=== PATIENT | female | born 1975 | race Caucasian/White ===

== ENCOUNTER 2024-11-14 10:32 | Outpatient (AMB) | payer BC, SELFPAY ==
--- NOTE | 2024-11-14 10:46 | A.OFFPC_ITS ---
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 Transferring from Dr. Nathaniel Campbell at [facility]. Medical records have been requested as of today. Last Mammogram done at [facility] on 06/01/24. 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 Automotive Quality Manager Required: No Accompanied by: Self / Same As Patient Allergies doxycycline Allergy (Intermediate, Verified 11/14/24 11:03) Rash Medication List - Last Reconciled 11/14/24 by Kevin Morales PA-C No Known Home Meds Tobacco use date assessed: 11/14/24 Dental Screening Dental Screen Date: 11/14/24 Did you have a dental visit in the last 12 months?: No Did you have a dental problem in the last 6 months where you did not have access to dental care?: No Was dental information given to patient?: Patient has dentist HPI IT ANALYST HPI Details Patient is a 49-year-old female here today for a new patient transfer of care visit. Previous PCP was at a [facility].. Concern--> Patient reporting menopausal symptoms and difficulties in managing weight post- menopause. She recounts experiencing nocturnal hot flashes that impact her quality of sleep. Attempts to lose weight have been ineffectual despite her efforts to modify dietary intake and maintain physical activity. 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 PLAN: We discussed weight loss options including dietitian and oral medication. Patient is interested in once a week injection GLP 1 as she had nose about its efficacy. Will try Wegovy 0.25 mg weekly and if not covered by insurance will consider an oral appetite suppressant option. 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 1. Little interest or pleasure in doing things: not at all 2. Feeling down, depressed, or hopeless: not at all 3. Trouble falling or staying asleep, or sleeping too much: several days 4. Feeling tired or having little energy: not at all 5. Poor appetite or overeating: not at all 6. Feeling bad about yourself - or that you are a failure or have let yourself or your family down: not at all 7. Trouble concentrating on things, such as reading the newspaper or watching television: not at all 8. Moving or speaking so slowly that other people could have noticed. Or the opposite - being so fidgety or restless that you have been moving around a lot more than usual: not at all 9. Thoughts that you would be better off or of hurting yourself in some way: not at all Total score: 1 Depression Screening Interpretation: Negative Depression Screening Done: Yes 47636 - PHQ-9 Billing: Yes Source: Developed by Drs. Elton Blood, Lisa Sharma, Dmitri Manuel and colleagues, with an educational solomon from [employer]. Thrive Questionnaire Date Thrive assessed: 11/14/24 I am a: Patient What is your living situation today?: I have a steady place to live Within the past 12 months, did the food you bought not last and you didn't have the money to get more?: Never true Within the past 12 months, did you worry whether your food would run out before you got money to buy more?: Never true Do you have trouble paying for medicines?: No Do you have trouble getting transportation to medical appointments?: No Do you have trouble paying your heating and electricity bill?: No Do you have trouble taking care of your child, family member or friend?: No Do you have trouble with day-to-day activities such as bathing, preparing meals, shopping, managing finances, etc.?: No Are you currently unemployed and looking for a job?: No Are you interested in more education?: No Please select the resources that you would like help with: None Currently or been in a relationship where the following occur: No concerns reported THRIVE Score: 0 AUDIT C Alcohol Use Questionnaire (AUDIT-C) 1. How often do you have a drink containing alcohol?: Never 3. How often do you have six or more drinks on one occasion?: Never Total Score: 0 MÓNICA-7 AMB Questionnaire MÓNICA-7 Date MÓNICA - 7 assessed: 11/14/24 Feeling nervous, anxious, or on edge: 0 = Not at all Not being able to stop or control worryin = Not at all Worrying too much about different things: 0 = Not at all Trouble relaxin = Not at all Being so restless that it is hard to sit still: 0 = Not at all Becoming easily annoyed or irritable: 0 = Not at all Feeling afraid as if something awful might happen: 0 = Not at all Total MÓNICA-7 score (0-4 normal; 5-9 mild; 10-14 moderate; 15-21 severe): 0 Source: Developed by Drs. Elton Blood, Lisa Sharma, Dmitri Manuel and colleagues, with an educational solomon from [employer]. MÓNICA-7 Assessment Billing MÓNICA-7 Assessment Tool: MÓNICA-7 Assessment 52297 Review of Systems Const Denies headache(s) Eyes Denies loss of vision ENT Denies vertigo, Denies dizziness, Denies headache(s) and Denies sore throat Card Denies chest pain, Denies leg edema and Denies lightheadedness Resp Denies cough, Denies hemoptysis and Denies wheezing GI Denies abdominal pain, Denies melena, Denies constipation, Denies diarrhea and Denies vomiting Denies urinary frequency, Denies dysuria and Denies urinary urgency Musc Denies arthralgias, Denies joint swelling, Denies numbness and Denies tingling Neuro Denies Abnormal speech present, Denies behavioral changes, Denies vertigo, Denies dizziness, Denies headache(s), Denies loss of vision, Denies memory loss, Denies numbness and Denies tingling Psych Denies anxiety, Denies behavioral changes, Denies depression, Denies memory loss and Denies panic attacks Aashish/Lymph Denies easy bleeding and Denies easy bruising Aller/Immun Denies wheezing Physical exam (Primary Care) Vital Signs: Last Vital Signs Temp 97.3 F 11/14/24 10:48 Pulse 72 11/14/24 10:48 BP 138/82 11/14/24 10:48 Pulse Ox 98 11/14/24 10:48 Oxygen Delivery Method Room Air 11/14/24 10:48 BMI result Body Mass Index 39.4 BMI Assessment/Plan discussion: High BMI High, discussed plan: lifestyle, weight reduction, dietary and physical activity Tobacco/Smoking Status: Tobacco use Status Tobacco use date assessed 11/14/24 11/14/24 10:54 Patient Tobacco Use Status Never used Tobacco 11/14/24 11:09 e-Cigarette/Vaping Use Never Used 11/14/24 11:09 PHQ-9: PHQ-9 Score PHQ-9: Total score 1 11/14/24 11:04 Depression Screening Interpretation: Negative Thrive Assessment: Date of Thrive Assessment Date Thrive assessed 11/14/24 11/14/24 10:55 Currently or been in a relationship where the following occur: No concerns rep orted Const General: healthy appearing, no acute distress, alert and awake Nutritional Appearance: well nourished Orientation/consciousness: oriented to person, oriented to place and oriented to time HENMT Ears: TM's normal bilaterally General nose exam: Normal nasal mucous membranes and turbinates present Eyes Conjunctivae: conjunctivae normal Sclerae: sclerae normal Pupils: Equal, round and reactive pupils present Neck Neck: Yes no lymphadenopathy and Yes no JVD Thyroid: Thyroid normal Carotids: no bruits Resp Effort & Inspection: normal respiratory effort and not tachypneic Auscultation: no crackles, no rales, no rhonchi and no wheezes Cardio Rate: regular rate Rhythm: regular rhythm Heart sounds: no murmurs and normal S1 and S2 GI Palpation (GI): Soft to palpation, nontender, no hepatomegaly and no spl enomegaly Auscultation: normal bowel sounds Skin General skin exam: no rashes or lesions noted and dry skin Neuro General: oriented to person, oriented to place and oriented to time Cranial nerves: Yes Equal, round and reactive pupils present Speech: No Abnormal speech present Gait exam (Neuro): Normal gait present Motor exam (neuro): no tremor noted Extrem Right upper extremity: full ROM Left upper extremity: full ROM Right lower extremity: full ROM; no edema Left lower extremity: full ROM; no edema Psych Mental Status: mental status grossly normal Speech and movement: Normal speech and movement present Affect: normal affect Attitude: cooperative Thought process: Normal thought process present Coding Level of Care Code New Pt Level 4 (52664) Diagnoses Class 2 obesity E66.812 Screening for diabetes mellitus (DM) Z13.1 Menopausal syndrome N95.1 Additional Codes MÓNICA-7 Assessment Billing - MÓNICA-7 Assessment Tool: MÓNICA-7 Assessment 28638 ([id number]) PHQ-9 - 50887 - PHQ-9 Billing: Yes ([id number]) Assessment & Plan Assessment & Plan (1) Class 2 obesity: Code(s): E66.812 - Obesity, class 2 Category: Medical Plan: Patient concerned about her weight, she does understand her BMI is over 35. We will address the patient?s weight management difficulties post-menopause by considering dietary changes and exploring pharmacological aids such as phentermine and possibly Wegovy (semaglutide), pending insurance verification. A dietitian referral will be considered for more structured dietary guidance. (2) Screening for diabetes mellitus (DM): Code(s): Z13.1 - Encounter for screening for diabetes mellitus Category: Medical Plan: as per hPI (3) Menopausal syndrome: Code(s): N95.1 - Menopausal and female climacteric states Category: Medical Plan: For her menopausal symptoms, a referral to a SOCIAL WELFARE RESEARCH WORKER for potential hormone replacement therapy was made. We discussed using black cohosh for managing hot flashes and considered a trial of sleep aids if nocturnal disturbances continue. Orders: Orders Complete Blood Count no Diff Today Z13.1 - Encounter for screening for diabetes mellitus Comprehensive [place]. Panel Fast Today Z13.1 - Encounter for screening for diabetes mellitus TSH reflex Free T4 Today E66.812 - Obesity, class 2 Follicle Stimulating Hormone Today N95.1 - Menopausal and female climacteric states Referrals LEAD ENTERPRISE ARCHITECT Referral N95.1 - Menopausal and female climacteric states Medications: New semaglutide (weight loss) (Wegovy) administer weeks 1 through 4 of therapy 0.25 mg (0.5 mL) subcut QWEEK 4 weeks 2 mL 0RF E66.812 - Obesity, class 2
[2024-11-14 10:48] VITALS: BP 138/82; PULSE 72; TEMP 36.3; O2SAT 98; BMI 39.4
== END 2024-11-14 11:31 | disposition home or self-care (01) ==
LOC: HO.HMCH 10:33
PROVIDERS: Visit Provider Physician Assistant
DX: N95.1 Menopausal and female climacteric states (principal); E66.812 Obesity, class 2; Z13.1 Encounter for screening for diabetes mellitus; Z68.39 Body mass index [BMI] 39.0-39.9, adult

== ENCOUNTER → 2024-11-14 10:32 | Outpatient (BNVA) | payer BC, SELFPAY | PROVIDERS: Visit Provider Physician Assistant | DX: E66.812 Obesity, class 2 (principal); N95.1 Menopausal and female climacteric states; Z68.39 Body mass index [BMI] 39.0-39.9, adult | CPT/HCPCS: 96127 ==

== ENCOUNTER 2025-01-19 11:14 | Outpatient (REF) | payer BC, SELFPAY ==
[2025-01-19 11:56] LABS: Hematocrit 40.2 % (37.0-47.0); Hemoglobin 13.1 g/dl (12.0-16.0); Mean Corpuscular HGB Conc 32.6 g/dl (31.0-35.0); Mean Corpuscular Hemoglobin 28.2 pg (27.0-33.0); Mean Corpuscular Volume 86.6 fL (80.0-98.0); NRBC Abs Auto 0.000 X10*3/uL (0.0-0.012); NRBC Pct Auto 0.0 /100WBC (0.0-0.2); Platelet Count 318 X10*3/uL (160-400); Red Blood Count 4.64 X10*6/uL (4.20-5.50); White Blood Count 8.3 X10*3/uL (4.8-10.8)
[2025-01-19 12:32] LABS: Alanine Aminotransferase 26 U/L (0-31); Albumin Level 4.3 g/dL (3.5-5.0); Alkaline Phosphatase 78 U/L (39-117); Anion Gap 13 (12-20); Aspartate Amino Transferase 26 U/L (5-31); Blood Urea Nitrogen 6 mg/dL (9-16); Calcium 9.1 mg/dL (8.4-10.2); Carbon Dioxide 25 mmol/L (22-29); Chloride 108 mmol/L (96-108); Estimated Glomerular Filt Rate > 60; Potassium 3.6 mmol/L (3.3-5.1); Sodium 142 mmol/L (135-145); Total Protein 7.0 g/dL (6.5-8.0)
[2025-01-20 06:27] LABS: Follicle Stimulating Hormone 10.9 mIU/mL
== END 2025-01-19 11:15 | disposition home or self-care (01) ==
LOC: HO.LAB 11:14
PROVIDERS: PCP Physician Assistant; Visit Provider Physician Assistant
DX: Z13.1 Encounter for screening for diabetes mellitus (principal); E66.812 Obesity, class 2; N95.1 Menopausal and female climacteric states
CPT/HCPCS: 36415; 80053; 83001; 84443; 85027

== ENCOUNTER 2025-01-24 08:55 | Outpatient (AMB) | payer BC, SELFPAY ==
--- NOTE | 2025-01-24 08:57 | A.OFFPC_ITS ---
Vital Signs 01/24/25 08:59 Height 5 ft 4 in Weight 228 lb 6 oz BMI 39.2 BP 120/70 Blood Pressure Location Lt brachial Position Sitting Pulse 70 Pulse Source Pulse Oximeter Temp 97.1 F Temp Source Temporal Artery Scan Pulse Oximetry (%) 96 Oxygen Delivery Method Room Air Intake Visit Reasons: pe Intake Note: Patient is here today for a physical. Venetian Blind Installer Required: No Senior Hr Manager: Not Required per policy Accompanied by: Self / Same As Patient Allergies doxycycline Allergy (Intermediate, Verified 01/24/25 09:12) Rash Medication List - Last Reconciled 01/24/25 by Kevin Morales PA-C semaglutide (weight loss) (Wegovy) 0.25 mg (0.5 mL) subcut QWEEK 4 weeks Tobacco use date assessed: 01/24/25 Dental Screening Dental Screen Date: 11/14/24 HPI pe HPI Details atient is a 50-year-old female here today for a annual physical. Patient has a past medical history significant for class 2 obesity Concern--> The patient is currently dealing with warts on her toes, which she has attempted to treat with [id number] remedies. She reports partial improvement but is considering further treatment options, including a medicated cream. Perimenopausal: Recent follicle stimulating hormone not in menopausal range. Patient reporting menopausal symptoms and difficulties in managing weight post-m enopause. She recounts experiencing nocturnal hot flashes that impact her quality of sleep. Attempts to lose weight have been ineffectual despite her efforts to modify dietary intake and maintain physical activity. 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 She has an upcoming appointment with operations director specialty.. Class 2 obesity: Patient was able to receive Wegovy from the pharmacy though has not started it yet as she has been on vacations. Today's BMI at 39.2. Will follow up with patient in 3 months to evaluate effectiveness of the GLP 1 medication. Mammogram: Has been done at [facility] in May of 2024 Vaccines: Up-to-date with COVID vaccines, flu vaccines and tetanus vaccine. 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 Cognitive needs: No Hearing needs: No Vision needs: No Questionnaire Thrive Questionnaire Date Thrive assessed: 11/10/24 I am a: Patient What is your living situation today?: I have a steady place to live Within the past 12 months, did the food you bought not last and you didn't have the money to get more?: Never true Within the past 12 months, did you worry whether your food would run out before you got money to buy more?: Never true Do you have trouble paying for medicines?: No Do you have trouble getting transportation to medical appointments?: No Do you have trouble paying your heating and electricity bill?: No Do you have trouble taking care of your child, family member or friend?: No Do you have trouble with day-to-day activities such as bathing, preparing meals, shopping, managing finances, etc.?: No Are you currently unemployed and looking for a job?: No Are you interested in more education?: No Please select the resources that you would like help with: None Currently or been in a relationship where the following occur: No concerns reported THRIVE Score: 0 MÓNICA-7 AMB Questionnaire MÓNICA-7 Date MÓNICA - 7 assessed: 11/14/24 Source: Developed by Drs. Elton Blood, Lisa Sharma, Dmitri Manuel and colleagues, with an educational solomon from [employer]. Review of Systems Const Denies body aches, Denies chills, Denies excessive sweating, Denies fatigue, Denies fever(s) and Denies headache(s) Eyes Denies blurry vision ENT Denies dysphagia, Denies vertigo, Denies dizziness, Denies headache(s), Denies hearing loss and Denies tinnitus Card Denies chest pain, Denies chest pain with activity, Denies syncope, Denies irregular heart rhythm and Denies dyspnea Resp Denies chest congestion, Denies cough, Denies hemoptysis, Denies dyspnea and Denies wheezing GI Denies abdominal pain, Denies melena, Denies hematochezia, Denies coffee ground emesis, Denies dysphagia, Denies diarrhea, Denies nausea and Denies vomiting Denies urinary frequency, Denies dysuria, Denies urinary hesitancy and Denies urinary urgency Musc Denies arthralgias, Denies limited range of motion, Denies muscle cramps and Denies muscle weakness Skin/Breast Denies rash and Denies skin ulcer Neuro Denies Abnormal speech present, Denies confusion, Denies vertigo, Denies dizziness, Denies syncope, Denies headache(s), Denies memory loss and Denies seizure-like activity Psych Denies anxiety, Denies confusion, Denies depression, Denies memory loss, Denies panic attacks and Denies paranoia Endo Denies excessive sweating, Denies fatigue, Denies flushing, Denies polydipsia and Denies polyuria Aller/Immun Denies wheezing Physical exam (Primary Care) Vital Signs: Last Vital Signs Temp 97.1 F 01/24/25 08:59 Pulse 70 01/24/25 08:59 BP 120/70 01/24/25 08:59 Pulse Ox 96 01/24/25 08:59 Oxygen Delivery Method Room Air 01/24/25 08:59 BMI result Body Mass Index 39.2 BMI Assessment/Plan discussion: High BMI High, discussed plan: lifestyle, weight reduction, dietary and physical activity Tobacco/Smoking Status: Tobacco use Status Tobacco use date assessed 01/24/25 01/24/25 09:03 Patient Tobacco Use Status Never used Tobacco 01/24/25 09:03 e-Cigarette/Vaping Use Never Used 01/24/25 09:03 Thrive Assessment: Date of Thrive Assessment Date Thrive assessed 11/10/24 01/24/25 09:03 Currently or been in a relationship where the following occur: No concerns reported Const General: cooperative, comfortable, no acute distress, alert and awake; No confusion Orientation/consciousness: oriented to person, oriented to place, patient oriented x3 and No confusion HENMT Head: Yes normocephalic Ears: external ears normal and TM's normal bilaterally Face and sinus: No sinus tenderness Mouth: Normal oral and palatal mucosa present and tongue normal Teeth and gingiva: dentition normal and gingiva normal Throat: Yes posterior oropharynx normal, Yes tonsils normal and Yes uvula midline Eyes Conjunctivae: conjunctivae normal Sclerae: sclerae normal Pupils: Equal, round and reactive pupils present EOM: EOMs intact bilaterally Direct Ophthalmoscopy: No no photophobia Neck Neck: Yes no lymphadenopathy, No tender and Yes no JVD Thyroid: Thyroid normal Carotids: no bruits Chest Chest palpation & inspection: no tenderness Resp Effort & Inspection: normal respiratory effort, no audible wheezes, not labored and no stridor Auscultation: no crackles, no rales, no rhonchi and no wheezes Cardio Jugular venous distension: no JVD Rate: regular rate, not bradycardic and not tachycardic Rhythm: regular rhythm Bruits: no carotid bruits Peripheral pulses: Peripheral pulses 2+ throughout GI Inspection: Yes normal to inspection, No abdominal wall ecchymosis and No visib le herniation Palpation (GI): Soft to palpation, nontender, no guarding, not rigid and No hepatosplenomegaly present Auscultation: normoactive bowel sounds General: Yes no CVA tenderness Back/Spine/Pelvis Back: no CVA tenderness and No back tenderness Cervical Spine: cervical ROM normal Thoracic/Lumbar Spine: thoracic and lumbar spine normal to inspection, straight leg raise negative bilaterally, No thoraco-lumbar ROM limited and No lumbar spinal tenderness Skin Lesions: no lesions Rashes: no rashes Wounds: no wounds Neuro General: oriented to person, oriented to place, patient oriented x3, CN's II-XI intact bilaterally and No confusion Cranial nerves: Yes Equal, round and reactive pupils present and Yes Normal accommodation reflex present Cognition (Neuro): normal cognition Speech: No Abnormal speech present Gait exam (Neuro): Normal gait present Motor exam (neuro): 5/5 motor strength present throughout Extrem Right upper extremity: full ROM; no cyanosis Left upper extremity: full ROM; no cyanosis Right lower extremity: no edema Left lower extremity: no edema Psych Appearance: grossly normal Mental Status: mental status grossly normal Affect: normal affect Attitude: cooperative Thought process: Normal thought process present Coding Level of Care Code Est Pt Prev Care 40-64y(96690) Diagnoses Annual physical exam Z00.00 Class 2 obesity E66.812 Menopausal syndrome N95.1 Borderline high cholesterol E78.9 Plantar wart B07.0 Assessment & Plan Assessment & Plan (1) Annual physical exam: Code(s): Z00.00 - Encounter for general adult medical examination without abnormal findings Category: Medical Plan: As per HPI (2) Class 2 obesity: Code(s): E66.812 - Obesity, class 2 Category: Medical Plan: Patient does understand her BMI is over 35 and will work on being more physically active and adapting to better eating habits to reduce her weight. She will be starting GLP 1 medication in near future to help weight loss as well. (3) Menopausal syndrome: Code(s): N95.1 - Menopausal and female climacteric states Category: Medical Plan: For her menopausal symptoms, a referral to a DIRECTOR OF PROCUREMENT for potential hormone replacement therapy was made. We discussed using black cohosh for managing hot flashes and considered a trial of sleep aids if nocturnal disturbances continue. (4) Borderline high cholesterol: Code(s): E78.9 - Disorder of lipoprotein metabolism, unspecified Category: Medical Plan: Patient has a history of borderline high total cholesterol. Will recheck lipid panel. Goal total cholesterol to be below 200 (5) Plantar wart: Code(s): B07.0 - Plantar wart Category: Medical Plan: The patient reports warts on her toes, which have been partially responsive to [id number] treatments. A medicated cream will be prescribed, and referral to a network contract manager is available if needed. Orders: Orders Lipid Panel Today E78.9 - Disorder of lipoprotein metabolism, unspecified Comprehensive [place]. Panel Fast Today E78.9 - Disorder of lipoprotein metabolism, unspecified Medications: New salicylic acid 27.5% apply to entire wart site; allow to dry; repeat application 1 appl topical BID 10 mL 0RF 4 weeks B07.0 - Plantar wart
[2025-01-24 08:59] VITALS: BP 120/70; PULSE 70; TEMP 36.2; O2SAT 96; BMI 39.2
== END 2025-01-24 09:25 | disposition home or self-care (01) ==
LOC: HO.HMCH 08:56
PROVIDERS: PCP Physician Assistant; Visit Provider Physician Assistant
DX: Z00.00 Encounter for general adult medical examination without abnormal findings (principal); E66.812 Obesity, class 2; Z68.39 Body mass index [BMI] 39.0-39.9, adult; N95.1 Menopausal and female climacteric states; E78.9 Disorder of lipoprotein metabolism, unspecified; B07.0 Plantar wart

== ENCOUNTER 2025-05-01 15:38 | Outpatient (AMB) | payer BC, SELFPAY ==
--- NOTE | 2025-05-01 15:39 | MHC.PC.OV ---
Vital Signs 05/01/25 15:44 Height 5 ft 4 in Weight 217 lb 6 oz BMI 37.3 BP 120/74 Blood Pressure Location Lt brachial Position Sitting Pulse 55 Pulse Source Pulse Oximeter Temp 97.3 F Temp Source Temporal Artery Scan Pulse Oximetry (%) 100 Oxygen Delivery Method Room Air Intake Visit Reasons: f/u weight check Intake Note: Patient is here to follow up on Weight check. 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 Patient has a past medical history significant for class 2 obesity, borderline high cholesterol Class 2 obesity: Patient continues on once weekly injection of Wegovy 0.25 mg. She has lost 10 lb since December of 2024, she denies any major side effects from medication. She is willing to increase her dose to 0.5 mg weekly for additional weight loss. .. Systolic murmur: Have noticed systolic murmur on physical exam today. She does report this has been heard in the past. There is no overt signs of Congestive heart failure. We did discuss perhaps getting an echocardiogram as baseline heart valvular function. 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 Cognitive needs: No Hearing needs: No Vision needs: No Questionnaire Thrive Questionnaire Date Thrive assessed: 11/10/24 I am a: Patient What is your living situation today?: I have a steady place to live Within the past 12 months, did the food you bought not last and you didn't have the money to get more?: Never true Within the past 12 months, did you worry whether your food would run out before you got money to buy more?: Never true Do you have trouble paying for medicines?: No Do you have trouble getting transportation to medical appointments?: No Do you have trouble paying your heating and electricity bill?: No Do you have trouble taking care of your child, family member or friend?: No Do you have trouble with day-to-day activities such as bathing, preparing meals, shopping, managing finances, etc.?: No Are you currently unemployed and looking for a job?: No Are you interested in more education?: No Please select the resources that you would like help with: None Currently or been in a relationship where the following occur: No concerns reported THRIVE Score: 0 MÓNICA-7 AMB Questionnaire MÓNICA-7 Date MÓNICA - 7 assessed: 11/14/24 Source: Developed by Drs. Elton Blood, Lisa Sharma, Dmitri Manuel and colleagues, with an educational solomon from [employer]. Review of Systems Const Denies headache(s) Eyes Denies loss of vision ENT Denies vertigo, Denies dizziness, Denies headache(s) and Denies sore throat Card Denies chest pain, Denies leg edema and Denies lightheadedness Resp Denies cough, Denies hemoptysis and Denies wheezing GI Denies abdominal pain, Denies melena, Denies constipation, Denies diarrhea and Denies vomiting Denies urinary frequency, Denies dysuria and Denies urinary urgency Musc Denies arthralgias, Denies joint swelling, Denies numbness and Denies tingling Neuro Denies Abnormal speech present, Denies behavioral changes, Denies vertigo, Denies dizziness, Denies headache(s), Denies loss of vision, Denies memory loss, Denies numbness and Denies tingling Psych Denies anxiety, Denies behavioral changes, Denies depression, Denies memory loss and Denies panic attacks Aashish/Lymph Denies easy bleeding and Denies easy bruising Aller/Immun Denies wheezing Physical exam (Primary Care) Vital Signs: Last Vital Signs Temp 97.3 F 05/01/25 15:44 Pulse 55 05/01/25 15:44 BP 120/74 05/01/25 15:44 Pulse Ox 100 05/01/25 15:44 Oxygen Delivery Method Room Air 05/01/25 15:44 BMI result Body Mass Index 37.3 Tobacco/Smoking Status: Tobacco use Status Tobacco use date assessed 05/01/25 05/01/25 15:43 Patient Tobacco Use Status Never used Tobacco 05/01/25 15:42 e-Cigarette/Vaping Use Never Used 05/01/25 15:42 Thrive Assessment: Date of Thrive Assessment Date Thrive assessed 11/10/24 05/01/25 15:42 Currently or been in a relationship where the following occur: No concerns reported Const Other: OBESE General: no acute distress, alert and awake Nutritional Appearance: well nourished Orientation/consciousness: oriented to person, oriented to place and oriented to time HENMT Ears: TM's normal bilaterally General nose exam: Normal nasal mucous membranes and turbinates present Eyes Conjunctivae: conjunctivae normal Sclerae: sclerae normal Pupils: Equal, round and reactive pupils present Neck Neck: Yes no lymphadenopathy and Yes no JVD Thyroid: Thyroid normal Carotids: no bruits Resp Effort & Inspection: normal respiratory effort and not tachypneic Auscultation: no crackles, no rales, no rhonchi and no wheezes Cardio Rate: regular rate Rhythm: regular rhythm Heart sounds: no murmurs and normal S1 and S2 GI Palpation (GI): Soft to palpation, nontender, no hepatomegaly and no splenomegaly Auscultation: normal bowel sounds Skin General skin exam: no rashes or lesions noted and dry skin Neuro General: oriented to person, oriented to place and oriented to time Cranial nerves: Yes Equal, round and reactive pupils present Speech: No Abnormal speech present Gait exam (Neuro): Normal gait present Motor exam (neuro): no tremor noted Extrem Right upper extremity: full ROM Left upper extremity: full ROM Right lower extremity: full ROM; no edema Left lower extremity: full ROM; no edema Psych Mental Status: mental status grossly normal Speech and movement: Normal speech and movement present Affect: normal affect Attitude: cooperative Thought process: Normal thought process present Coding Level of Care Code Est Pt Level 4 (32758) Diagnoses Class 2 obesity E66.812 Borderline high cholesterol E78.9 Assessment & Plan Assessment & Plan (1) Class 2 obesity: Code(s): E66.812 - Obesity, class 2 Category: Medical Plan: Patient does understand her BMI is over 35, has lost weight since starting GLP 1 therapy though has been on Wegovy 0.25 mg for quite some time now. She is interested in increasing the Wegovy to 0.5 mg for additional weight loss. (2) Borderline high cholesterol: Code(s): E78.9 - Disorder of lipoprotein metabolism, unspecified Category: Medical Plan: Patient has a history of borderline high cholesterol. Continues on dietary and lifestyle modifications. Will recheck fasting lipid panel before her annual physical in 2025. Goal LDL is to be below 130 Medications: New semaglutide (weight loss) (Wegovy) 0.5 mg (0.5 mL) subcut QWEEK 2 mL 1RF 4 weeks E66.812 - Obesity, class 2
[2025-05-01 15:44] VITALS: BP 120/74; PULSE 55; TEMP 36.3; O2SAT 100; BMI 37.3
--- OUTSIDE RECORDS SUMMARY | 2025-05-01 18:18 | XMS_ITS | Data Portability ---
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 Plan of Treatment Reminders Order Date Submit Date Provider Last Modified By Organization Details Last Modified Time Details Appointments None recorded. Lab lipid panel, serum 2022 023 [facility], [address], [address], [place], [address], 3 16:28:57 TSH, serum or plasma 2022 023 [facility], [address], [address], [place], [address], 3 16:28:27 CMP, serum or plasma 2021 022 [facility], [address], [address], [place], [address], 3 10:59:55 lipid panel, serum 2020 021 [facility], [address], [address], [place], [address], 2 10:33:28 TSH, serum or plasma 2020 021 [facility], [address], [address], [place], [address], 1 11:06:06 lipid panel, serum 2020 021 [facility], [address], [address], [place], [address], 11:00:17 CMP, serum or plasma 2020 021 [facility], [address], [address], [place], [address], 11:00:15 Referral bariatric surgery referral - For all patients interested in the surgical weight management pathway, they will enter through our web-based video training and questionnai re [email or web address] to get started Must have a BMI of 35 or greater to qualify for the program. (35-39 we must ask and document a co-morbidit y) Patient must provide height and weight 2022 023 [email or web address] [facility], [address] [place] [address] [address], [place], [address], 3 09:21:50 gynecologis t referral 2022 023 [email or web address] Not available 3 09:30:26 nutritionis t/dietitian referral 2020 021 [email or web address] Not available 1 11:33:14 nutritionis t/dietitian referral 2020 021 [email or web address] Not available 08:05:35 Procedures None recorded. Surgeries None recorded. Imaging MAMMO, screening, bilateral 2020 021 [email or web address] Not available 08:05:27 Medication Orders None recorded. Patient TargetsNo targets recorded. Patient Instructions Encounter Date Encounter Id Patient Instructions Last Modified By Organization Details Last Modified Time 10/29/2020 [id number] Starting a Weight-Loss Plan: Care Instructions Not available 10/29/2020 15:02:53 Nutrition Referral and Weight Management Follow-up Information Not available 10/29/2020 15:02:53 dash diet: care instructions Not available 10/29/2020 15:07:37 high blood pressure: care instructions Not available 10/29/2020 15:07:36 04/30/2021 [id number] Starting a Weight-Loss Plan: Care Instructions Not available 04/30/2021 16:58:31 Nutrition Referral and Weight Management Follow-up Information Not available 04/30/2021 16:58:31 09/18/2022 [id number] dash diet: care instructions Not available 09/18/2022 16:34:06 Reason for Referral 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 Refer ral for Body mass index 40+ - severely obese Referring Physician: Sara Garcia, Internal Medicine, Encounter Date: 10/29/2020 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 Refer ral for Body mass index 30+ - obesity Referring Physician: Sara Garcia Internal Medicine, Encounter Date: 04/30/2021 Bariatric Surgery Referral f or Body mass index 40+ - severely obese For all patients interested in the surgical weight management pathway, they will enter through our web-based video training and questionnaire [email or web address] to get startedMust have a BMI of 35 or greater to qualify for the program. (35-39 we must ask and document a co-morbidity) Patient must provide height and weight Referring Physician: Sara Garcia Internal Medicine, Encounter Date: 09/18/2022 Multi Site Leasing Consultant Referral for Sc reening for malignant neoplasm of cervix Referring Physician: Sara Garcia Internal Medicine, Encounter Date: 09/18/2022 Results Created Date Observation Date Name Description Value Unit Range Abnormal Flag Note LastModifiedBy Organization Detail LastModifiedTime 11/27/19 21 11/26/2020 CMP, serum or plasm a glucose 81 mg/dL (70-99 ) Not Available [facility] (Centralized Electronic Ordering - All Locations) Patient Can Go To The Location Of Their Choice, 11/26/2020 11:00:11/27/1911/26/2020 CMP, serum or plasm a BUN 10 mg/dL (6-20) Not Available [facility] (Centralized Electronic Ordering - All Locations) Patient Can Go To The Location Of Their Choice, 11/26/2020 11:00:11/27/1911/26/2020 CMP, serum or plasm a creatinine 0.8 mg/dL (0.5-1 .0) Not Available [facility] (Centralized Electronic Ordering - All Locations) Patient Can Go To The Location Of Their Choice, 11/26/2020 11:00:11/27/1911/26/2020 CMP, serum or plasm a sodium 140 mmol/ L (133-1 45) Not Available [facility] (Centralized Electronic Ordering - All Locations) Patient Can Go To The Location Of Their Choice, 11/26/2020 11:00:11/27/1911/26/2020 CMP, serum or plasm a potassium 4.3 mmol/ L (3.6-5 .2) Not Available [facility] (Centralized Electronic Ordering - All Locations) Patient Can Go To The Location Of Their Choice, 11/26/2020 11:00:11/27/1911/26/2020 CMP, serum or plasm a chloride 102 mmol/ L (98-10 7) Not Available [facility] (Centralized Electronic Ordering - All Locations) Patient Can Go To The Location Of Their Choice, 11/26/2020 11:00:11/27/1911/26/2020 CMP, serum or plasm a bicarbonate 25 mmol/ L (22-29 ) Not Available [facility] (Centralized Electronic Ordering - All Locations) Patient Can Go To The Location Of Their Choice, 11/26/2020 11:00:11/27/1911/26/2020 CMP, serum or plasm a anion gap 13 (4-17) Not Available [facility] (Centralized Electronic Ordering - All Locations) Patient Can Go To The Location Of Their Choice, 11/26/2020 11:00:11/27/1911/26/2020 CMP, serum or plasm a albumin 4.1 gm/dL (3.4-4 .8) Not Available [facility] (Centralized Electronic Ordering - All Locations) Patient Can Go To The Location Of Their Choice, 11/26/2020 11:00:15 11/27/1911/26/2020 CMP, serum or plasm a calcium 9.2 mg/dL (8.6-1 0.5) Not Available [facility] (Centralized Electronic Ordering - All Locations) Patient Can Go To The Location Of Their Choice, 11/26/2020 11:00:15 11/27/1911/26/2020 CMP, serum or plasm a bilirubin,to hoang 0.3 mg/dL (0-1.2 ) Not Available [facility] (Centralized Electronic Ordering - All Locations) Patient Can Go To The Location Of Their Choice, 11/26/2020 11:00:15 11/27/1911/26/2020 CMP, serum or plasm a total protein 6.7 gm/dL (6.2-8 .2) Not Available [facility] (Centralized Electronic Ordering - All Locations) Patient Can Go To The Location Of Their Choice, 11/26/2020 11:00:11/27/1911/26/2020 CMP, serum or plasm a Ag ratio 1.6 Not Available [facility] (Centralized Electronic Ordering - All Locations) Patient Can Go To The Location Of Their Choice, 11/26/2020 11:00:11/27/1911/26/2020 CMP, serum or plasm a AST 15 U/L (0-32) Not Available [facility] (Centralized Electronic Ordering - All Locations) Patient Can Go To The Location Of Their Choice, 11/26/2020 11:00:15 11/27/1911/26/2020 CMP, serum or plasm a alk phos 78 U/L (35-10 4) Not Available [facility] (Centralized Electronic Ordering - All Locations) Patient Can Go To The Location Of Their Choice, 11/26/2020 11:00:15 11/27/1911/26/2020 CMP, serum or plasm a ALT 15 U/L (0-33) Not Available [facility] (Centralized Electronic Ordering - All Locations) Patient Can Go To The Location Of Their Choice, 11/26/2020 11:00:15 11/27/1911/26/2020 CMP, serum or plasm a est GFR non 92 mL/mi n/1.7 3_M2 Creat inine based estim ated glome rular filtr ation rate (eGFR ) is calcu lated using the Chron ic Kidne y Disea se Epide miolo gy Colla borat ion (CKD- EPI). The CKD-E PI creat inine equat ion has not been valid ated in child yoko (<18 years ), pregn ant women or in some racia l or ethni c subgr oups other than Cauca sians and Afric an Ameri cans. Not Available [facility] (Centralized Electronic Ordering - All Locations) Patient Can Go To The Location Of Their Choice, 11/26/2020 11:00:15 11/27/1911/26/2020 CMP, serum or plasm a est GFR 107 mL/mi n/1.7 3_M2 Creat inine based estim ated glome rular filtr ation rate (eGFR ) is calcu lated using the Chron ic Kidne y Disea se Epide miolo gy Colla borat ion (CKD- EPI). The CKD-E PI creat inine equat ion has not been valid ated in child yoko (<18 years ), pregn ant women or in some racia l or ethni c subgr oups other than Cauca sians and Afric an Ameri cans. Not Available [facility] (Centralized Electronic Ordering - All Locations) Patient Can Go To The Location Of Their Choice, 11/26/2020 11:00:15 11/27/1911/26/2020 lipid panel , serum cholesterol, total 172 mg/dL (<200) Not Available [facility] (Centralized Electronic Ordering - All Locations) Patient Can Go To The Location Of Their Choice, 11/26/2020 11:00:16 11/27/1911/26/2020 lipid panel , serum triglyceride 215 mg/dL (<150) high Not Available [facility] (Centralized Electronic Ordering - All Locations) Patient Can Go To The Location Of Their Choice, 11/26/2020 11:00:16 11/27/1911/26/2020 lipid panel , serum HDL chol 37 mg/dL (>39) low Not Available [facility] (Centralized Electronic Ordering - All Locations) Patient Can Go To The Location Of Their Choice, 11/26/2020 11:00:16 11/27/1911/26/2020 lipid panel , serum LDL cholesterol, calculated 92 mg/dL (0-130 ) Not Available [facility] (Centralized Electronic Ordering - All Locations) Patient Can Go To The Location Of Their Choice, 11/26/2020 11:00:16 11/27/1911/26/2020 lipid panel , serum non HDL cholesterol (calc) 135 mg/dL (<160) Not Available [facility] (Centralized Electronic Ordering - All Locations) Patient Can Go To The Location Of Their Choice, 11/26/2020 11:00:16 11/27/1911/26/2020 TSH, serum or plasm a TSH 1.72 uIU/m L (0.4-4 .00) Not Available [facility] (Centralized Electronic Ordering - All Locations) Patient Can Go To The Location Of Their Choice, 11/26/2020 11:06:06 08/12/1908/12/2021 LIPID PANEL cholesterol, total 180 mg/dL (<200) Not Available [facility] (Centralized Electronic Ordering - All Locations) Patient Can Go To The Location Of Their Choice, 08/12/2021 10:33:28 08/12/1908/12/2021 LIPID PANEL triglyceride 152 mg/dL (<150) high Not Available [facility] (Centralized Electronic Ordering - All Locations) Patient Can Go To The Location Of Their Choice, 08/12/2021 10:33:28 08/12/19 22 08/12/2021 LIPID PANEL HDL chol 40 mg/dL (>39) Not Available [facility] (Centralized Electronic Ordering - All Locations) Patient Can Go To The Location Of Their Choice, 08/12/2021 10:33:28 08/12/1908/12/2021 LIPID PANEL LDL cholesterol, calculated 110 mg/dL (0-130 ) Not Available [facility] (Centralized Electronic Ordering - All Locations) Patient Can Go To The Location Of Their Choice, 08/12/2021 10:33:28 08/12/1908/12/2021 LIPID PANEL non HDL cholesterol (calc) 140 mg/dL (<160) Not Available [facility] (Centralized Electronic Ordering - All Locations) Patient Can Go To The Location Of Their Choice, 08/12/2021 10:33:28 09/05/1909/04/2022 COMPR EHENS COLLIN METAB OLIC PANL glucose 81 mg/dL (70-99 ) Not Available [facility] (Centralized Electronic Ordering - All Locations) Patient Can Go To The Location Of Their Choice, 09/04/2022 10:59:55 09/05/1909/04/2022 COMPR EHENS COLLIN METAB OLIC PANL BUN 8 mg/dL (6-20) Not Available [facility] (Centralized Electronic Ordering - All Locations) Patient Can Go To The Location Of Their Choice, 09/04/2022 10:59:55 09/05/1909/04/2022 COMPR EHENS COLLIN METAB OLIC PANL creatinine 0.8 mg/dL (0.5-1 .0) Not Available [facility] (Centralized Electronic Ordering - All Locations) Patient Can Go To The Location Of Their Choice, 09/04/2022 10:59:55 09/05/1909/04/2022 COMPR EHENS COLLIN METAB OLIC PANL sodium 138 mmol/ L (133-1 45) Not Available [facility] (Centralized Electronic Ordering - All Locations) Patient Can Go To The Location Of Their Choice, 09/04/2022 10:59:55 09/05/1909/04/2022 COMPR EHENS COLLIN METAB OLIC PANL potassium 3.9 mmol/ L (3.6-5 .2) Not Available [facility] (Centralized Electronic Ordering - All Locations) Patient Can Go To The Location Of Their Choice, 09/04/2022 10:59:55 09/05/1909/04/2022 COMPR EHENS COLLIN METAB OLIC PANL chloride 101 mmol/ L (98-10 7) Not Available [facility] (Centralized Electronic Ordering - All Locations) Patient Can Go To The Location Of Their Choice, 09/04/2022 10:59:55 09/05/1909/04/2022 COMPR EHENS COLLIN METAB OLIC PANL bicarbonate 26 mmol/ L (22-29 ) Not Available [facility] (Centralized Electronic Ordering - All Locations) Patient Can Go To The Location Of Their Choice, 09/04/2022 10:59:55 09/05/1909/04/2022 COMPR EHENS COLLIN METAB OLIC PANL anion gap 11 (4-17) Not Available [facility] (Centralized Electronic Ordering - All Locations) Patient Can Go To The Location Of Their Choice, 09/04/2022 10:59:55 09/05/1909/04/2022 COMPR EHENS COLLIN METAB OLIC PANL albumin 4.3 gm/dL (3.4-4 .8) Not Available [facility] (Centralized Electronic Ordering - All Locations) Patient Can Go To The Location Of Their Choice, 09/04/2022 10:59:55 09/05/1909/04/2022 COMPR EHENS COLLIN METAB OLIC PANL calcium 9.6 mg/dL (8.6-1 0.5) Not Available [facility] (Centralized Electronic Ordering - All Locations) Patient Can Go To The Location Of Their Choice, 09/04/2022 10:59:55 09/05/1909/04/2022 COMPR EHENS COLLIN METAB OLIC PANL bilirubin,to hoang 0.4 mg/dL (0-1.2 ) Not Available [facility] (Centralized Electronic Ordering - All Locations) Patient Can Go To The Location Of Their Choice, 09/04/2022 10:59:55 09/05/1909/04/2022 COMPR EHENS COLLIN METAB OLIC PANL total protein 6.8 gm/dL (6.2-8 .2) Not Available [facility] (Centralized Electronic Ordering - All Locations) Patient Can Go To The Location Of Their Choice, 09/04/2022 10:59:55 09/05/1909/04/2022 COMPR EHENS COLLIN METAB OLIC PANL Ag ratio 1.7 Not Available [facility] (Centralized Electronic Ordering - All Locations) Patient Can Go To The Location Of Their Choice, 09/04/2022 10:59:55 09/05/19 23 09/04/2022 COMPR EHENS COLLIN METAB OLIC PANL AST 18 U/L (0-32) Not Available [facility] (Centralized Electronic Ordering - All Locations) Patient Can Go To The Location Of Their Choice, 09/04/2022 10:59:55 09/05/19 23 09/04/2022 COMPR EHENS COLLIN METAB OLIC PANL alk phos 78 U/L (35-10 4) Not Available [facility] (Centralized Electronic Ordering - All Locations) Patient Can Go To The Location Of Their Choice, 09/04/2022 10:59:55 09/05/19 23 09/04/2022 COMPR EHENS COLLIN METAB OLIC PANL ALT 21 U/L (0-33) Not Available [facility] (Centralized Electronic Ordering - All Locations) Patient Can Go To The Location Of Their Choice, 09/04/2022 10:59:55 09/05/1909/04/2022 COMPR EHENS COLLIN METAB OLIC PANL estimated GFR creatinine 98 mL/mi n/1.7 3_M2 Creat inine based estim ated glome rular filtr ation (eGFR ) in adult s is calcu lated using the Natio nal Kidne y Found ation recom alex d 2020 CKD-E PI equat ion. Estim ates GFR from serum creat inine , age and sex. Not Available [facility] (Centralized Electronic Ordering - All Locations) Patient Can Go To The Location Of Their Choice, 09/04/2022 10:59:55 04/22/20 22 04/22/2022 MAMMO , scree gabi, digit al, bilat eral PROCED URE: MM Digita l Mammo Screen ing INDICA TION: Screen ing for breast cancer . No known palpab le abnorm alitie s. COMPAR KAL: 018. TECHNI QUE: Full-f ield digita l CC and MLO 3D tomosy nthesi s images of both breast s were acquir ed. Comput er-aid ed detect ion (CAD) was utiliz ed in the interp retati on of this study. DENSIT Y: The breast tissue is almost entire ly fatty. FINDIN GS: No suspic ious masses , suspic ious microc alcifi cation s, or areas of shahida ectura l distor tion are seen in either breast to sugges t malign gael. IMPRES RAÚL: No mammog raphic eviden ce of malign gael. RECOMM ENDATI ON: Annual mammog raphic screen ing BI-RAD S: 1 (Negat collin) Lay letter mailed to dayne barnes WSN: [id number] Orderi ng Physic cricket: Bradford Garcia Dictat ed By: Robi Del Real MD Dictat ed Date/T jill: 5:38 pm Review ed By: Robi Del Real MD Signed By: Robi Del Real MD Signed Date/T jill: 5:38 pm Transc ribed By: ALIZE Transc riptio n Date/T jill: 5:36 pm Birads : Dayne barnes Class: Outpat ient [facility] (Outpt Imaging) [address], [place], [address], 04/23/2022 09:37:07 04/22/20 22 04/22/2022 MAMMO , scree gabi, bilat eral No observ ation record ed. [email or web address] [facility] [address], [place], [address], 04/24/2022 11:40:44 05/07/20 23 05/06/2023 MAMMO , scree gabi, digit al, bilat eral Bilate ral full field digita l breast tomosy nthesi s perfor med on a Hologi c Seleni a dimens ion with I CAD second look 7.2-H comput er aided detect ion dated Novemb er 2022. Compar kal films are from Octobe r 2021 and Novemb er 2018. HISTOR Y: Breast cancer screen ing. FINDIN GS: The breast s are predom inantl y fatty replac ed. No suspic ious mass, nodule , shahida ectura l distor tion or groupe d microc alcifi cation s are seen. No skin thicke gabi or nipple retrac tion is apprec iated. IMPRES RAÚL: No mammog raphic eviden ce of malign gael and no signif icant interv al change . Recomm endati on: Routin e annual screen ing. Examin ation [id number] and G0202. BI-RAD S one negati ve. Letter L3. Thank you for elmeri anna me to partic ipate in the care of this dayne t. WSN: [id number] Orderi ng Physic cricket: Bradford Garcia Dictat ed By: Jass Alonso MD Dictat ed Date/T jill: 8:22 am Review ed By: Jass Alonso MD Signed By: Jass Alonso MD Signed Date/T jill: 8:22 am Transc ribed By: ALIZE Transc riptio n Date/T jill: 8:22 am Birads : Patien t Class: Outpat ient [address] (Outpt Imaging) [address] , [place], [address], 05/07/2023 08:47:23 05/07/20 23 05/06/2023 MAMMO , scree gabi, digit al, bilat eral No observ ation record ed. [address] [facility] [address] [facility] [place], [address], 05/07/2023 09:59:00 06/01/20 24 06/01/2024 MAMMO , scree gabi, digit al, bilat eral No observ ation record ed. [address] [facility] [address] [place], [address], 06/02/2024 08:37:40 06/01/20 24 06/01/2024 MAMMO , scree gabi, digit al, bilat eral PROCED URE: MM Digita l Mammo Screen ing INDICA TION: Screen ing for breast cancer . No known palpab le abnorm alitie s. COMPAR KAL: Prior mammog abhijit dating back to 2017. TECHNI QUE: Full-f ield digita l CC and MLO 3-D tomosy nthesi s images of both breast s were acquir ed. Comput er-aid ed detect ion (CAD) was utiliz ed in the interp retati on of this study. DENSIT Y: The breast tissue is almost entire ly fatty. FINDIN GS: No suspic ious masses , suspic ious microc alcifi cation s, or areas of shahida ectura l distor tion are seen in either breast to sugges t malign gael. IMPRES RAÚL: No mammog raphic eviden ce of malign gael. RECOMM ENDATI ON: Annual mammog raphic screen ing BI-RAD S: 1 (Negat collin) Lay letter mailed to dayne molly WSN: [id number] Orderi ng Physic cricket: Bradford Garcia Dictat ed By: Sophie Briceño MD Dictat ed Date/T jill: 5:35 pm Review ed By: Sophie Briceño MD Signed By: Sophie Briceño MD Signed Date/T jill: 5:35 pm Transc ribed By: CSB Transc riptio n Date/T jlil: 5:33 pm Birads : Dayne barnes Class: Outpat ient [email or web address] [facility] (Outpt Imaging) [address] [place] [address], [address], 06/02/2024 08:38:15 Result Notes Documentation Provider Name and Address Organization Details Recorded Time Mammo, Screening, Digital, Bilateral : PROCEDURE: MM Digital Mammo Screening INDICATION: Screening for breast cancer. No known palpable abnormalities. COMPARISON: 01/20/2018. TECHNIQUE: Full-field digital CC and MLO 3D tomosynthesis images of both breasts were acquired. Computer-aided detection (CAD) was utilized in the interpretation of this study. DENSITY: The breast tissue is almost entirely fatty. FINDINGS: No suspicious masses, suspicious microcalcifications, or areas of architectural distortion are seen in either breast to suggest malignancy. IMPRESSION: No mammographic evidence of malignancy. RECOMMENDATION: Annual mammographic screening BI-RADS: 1 (Negative) Lay letter mailed to patient WSN: [id number] Ordering Physician: Sara Garcia Dictated By: Mary Del Real MD Dictated Date/Time: 04/22/22 5:38 pm Reviewed By: Mary Del Real MD Signed By: Mary Del Real MD Signed Date/Time: 04/22/22 5:38 pm Transcribed By: ALIZE Supervisor Drilling And Shooting Date/Time: 04/22/22 5:36 pm Birads: Patient [facility] 09:37:07 Mammo, Screening, Digital, Bilateral : Bilateral full field digital breast tomosynthesis performed on a [employer] dimension with I CAD second look 7.2-H computer aided detection dated May 06, 2023. Comparison films are from April 22, 2022 and May 23, 2018. HISTORY: Breast cancer screening. FINDINGS: The breasts are predominantly fatty replaced. No suspicious mass, nodule, architectural distortion or grouped microcalcifications are seen. No skin thickening or nipple retraction is appreciated. IMPRESSION: No mammographic evidence of malignancy and no significant interval change. Recommendation: Routine annual screening. Examination 27346 and G0202. BI-RADS one negative. Letter L3. Thank you for allowing me to participate in the care of this patient. WSN: [id number] Ordering Physician: Sara Garcia Dictated By: Jass Alonso MD Dictated Date/Time: 05/07/23 8:22 am Reviewed By: Jass Alonso MD Signed By: Jass Alonso MD Signed Date/Time: 05/07/23 8:22 am Transcribed By: ALIZE Supervisor Drilling [employer] Shooting Date/Time: 05/07/23 8:22 am Birads: [facility] 08:47:23 Mammo, Screening, Digital, Bilateral : PROCEDURE: MM Digital Mammo Screening INDICATION: Screening for breast cancer. No known palpable abnormalities. COMPARISON: Prior mammograms dating back to 05/23/2018. TECHNIQUE: Full-field digital CC and MLO 3-D tomosynthesis images of both breasts were acquired. Computer-aided detection (CAD) was utilized in the interpretation of this study. DENSITY: The breast tissue is almost entirely fatty. FINDINGS: No suspicious masses, suspicious microcalcifications, or areas of architectural distortion are seen in either breast to suggest malignancy. IMPRESSION: No mammographic evidence of malignancy. RECOMMENDATION: Annual mammographic screening BI-RADS: 1 (Negative) Lay letter mailed to patient WSN: [id number] Ordering Physician: Sara Garcia Dictated By: Sophie Briceño MD Dictated Date/Time: 06/01/24 5:35 pm Reviewed By: Sophie Briceño MD Signed By: Sophie Briceño MD Signed Date/Time: 06/01/24 5:35 pm Transcribed By: ALIZE Supervisor Drilling And Shooting Date/Time: 06/01/24 5:33 pm Birads: Patient Class: [facility]02[facility]2024 08:38:15 Problems Name Problem SNOMED Code Status Onset Date Resolution Date Notes Provider Name and Address Organization Details Recorded Time Varicella 85551830 Completed 197810/03/2020 [facility] 1 14:17:30 Hyperlipid emia 67905477 Completed 202011/27/2020 Sara Garcia PA-C [address] [address], [place], [address] , [facility] 1 13:51:07 Elevated blood-pres sure reading without diagnosis of hypertensi on 129460541 Active 2020 Sara Garcia PA-C [address] [address], [place], [address] , [facility] 1 15:07:21 Lyme disease 81559913 Completed 202010/29/2020 Sara Garcia PA-C [address] [address], [address] , [facility] 1 15:17:09 Hypertrigl yceridemia 358116855 Active 2020 Sara Garcia PA-C [address] [address], [address] , [facility] 1 13:51:15 Body mass index 40+ - severely obese 321177310 Active 2022 Sara Garcia PA-C [address], [place], [address] , [facility] 3 16:27:20 Problem Notes None recorded. Procedures Surgical History Date Name Laterality Status Provider Name and Address Organization Details Recorded Time 4 Most Recent Mammogram completed Lissa Fregoso [facility] 06/02/2024 08:37:34 2 Mammogram screening completed [facility] [facility] 04/23/2022 09:36:58 7 Date of Last Pap Smear completed Bhavya Hartmann [facility] 10/04/2020 08:57:14 7 Caesarean Section completed Michelle Ruiz MA [facility] 10/29/2020 14:23:29 3 Removal of ovarian cyst(s) completed Michelle Ruiz MA [facility] 10/29/2020 14:30:22 Imaging Results None recorded. Procedure Notes None recorded. Medical Equipment None Reported. Allergies Allergen ID Allergen Name Allergen Category Reaction Reaction Severity Criticality Documentation Date Start Date Code Code System Note Provider Name and Address Organization Details Recorded Time 91320 doxycycli ne Not available rash moderate Not available 10/29/2020 3640 RxNorm Michelle Ruiz MA null, [facility] 1 14:29:01 Medications Name Sig Start Date Stop Date Status Note LastModified by Organization Details LastModified Time Afluria Qd 2019- (36 mos up)(PF)6 0 mcg (15 mcg x4)/0.5 mL IM syringe PHARMACY ADMINISTERED 10/29 completed Not Available Not Available Not Available Vitals Date Recorded Body height Body mass index (BMI) Body weight Heart rate Oxygen saturation Oxygen saturation in Arterial blood by Pulse oximetry Body temperature Systolic And Diastolic Provider Name and Address Organization Details Last Updated DateTime 3 162.56 cm 41 kg/m2 036932. 58 g 75 /min 98 % 98 % 98.2 [degF] 135/81 mm[Hg] Michelle Ruiz MA [facility] 3 15:54:05 Date Recorded Systolic And Diastolic Provider Name and Address Organization Details Last Updated DateTime 10/29/2020 154/90 mm[Hg] Sara Garcia PA-C [address] [facility] [address], [place], [address], [facility] 10/29/2020 15:25:06 Date Recorded Body weight Body mass index (BMI) Body height Heart rate Oxygen saturation Oxygen saturation in Arterial blood by Pulse oximetry Body temperature Systolic And Diastolic Provider Name and Address Organization Details Last Updated DateTime 1 622613. 02 g 40 kg/m2 162.56 cm 62 /min 98 % 98 % 98.78 [degF] 155/74 mm[Hg] Michelle Ruiz MA [facility] 1 14:32:48 Date Recorded Body height Body mass index (BMI) Body weight Oxygen saturation Oxygen saturation in Arterial blood by Pulse oximetry Heart rate Body temperature Systolic And Diastolic Provider Name and Address Organization Details Last Updated DateTime 1 162.56 cm 39.4 kg/m2 237210. 75 g 100 % 100 % 72 /min 98.24 [degF] 130/77 mm[Hg] Beth Childers MA [facility] 1 15:16:48 Date Recorded Body height Body mass index (BMI) Body weight Heart rate Oxygen saturation Oxygen saturation in Arterial blood by Pulse oximetry Body temperature Systolic And Diastolic Provider Name and Address Organization Details Last Updated DateTime 2 162.56 cm 39.5 kg/m2 933168. 25 g 76 /min 98 % 98 % 97.88 [degF] 124/74 mm[Hg] Reese Cummings MA [facility] 2 15:59:04 Date Recorded Body height Body mass index (BMI) Body weight Heart rate Oxygen saturation Oxygen saturation in Arterial blood by Pulse oximetry Body temperature Provider Name and Address Organization Details Last Updated DateTime 1 162.56 cm 38.8 kg/m2 050328. 88 g 75 /min 98 % 98 % 98.78 [degF] Michelle Ruiz MA [facility] 16:18:41 Date Recorded Systolic And Diastolic Provider Name and Address Organization Details Last Updated DateTime 04/30/2021 122/78 mm[Hg] Kalpana Benites [facility] 04/30/2021 16:42:59 Social History Question Answer Notes LastModified by Organizat ion Details LastModified Time Tobacco Smoking Status Never Smoker Michelle Ruiz MA null, [facility] 10/29/2020 14:23:25 Is Blood Transfusion Acceptable In An Emergency? Yes [email or web address] Information not available 10/29/2020 What Is Your Level Of Caffeine Consumption? Occasional [email or web address] Information not available 10/29/2020 How Much Tobacco Do You Chew? None [email or web address] Information not available 10/29/2020 What Type Of Diet Are You Following? REGULAR [email or web address] Information not available 10/29/2020 Live Alone Or With Others? With Others Mom Dad Daughter(4 ) Aaron Information not available 03/10/2022 Do You Take Precautions To Prevent Distracted Driving? Yes [email or web address] Information not available 10/29/2020 How Often Do You Need To Have Someone Help You When You Read Instructions, Pamphlets, Or Other Written Material From Your Doctor Or Pharmacy? Never Information not available 10/29/2020 Have You Or Anyone In Your Household Had Any Of The Following Symptoms In The Last 14 Days: Sore Throat, Cough, Chills, Body Aches For Unknown Reasons, Shortness Of Breath For Unknown Reasons, Loss Of Smell, Loss Of Taste, Fever At Or Greater Than 100 Degrees Fahrenheit? No [email or web address] Information not available 12/03/2020 Are You Or Anyone In Your Household A Health Care Provider Or Emergency Responder? No [email or web address] Information not available 12/03/2020 To The Best Of Your Knowledge Have You Been In Close Proximity To Any Individual Who Tested Positive For COVID-19? No [email or web address] Information not available 10/29/2020 Have You Recently Traveled To A COVID-19 High Risk Area Or Gathering In The Last 10 Days? No Information not available 12/03/2020 How Many Children Do You Have? 1 [email or web address] Information not available 10/29/2020 Seat Belts Used Routinely Yes Information not available 03/10/2022 Are You Sexually Active? No [email or web address] Information not available 10/29/2020 Smoke Alarm In Home Yes Information not available 03/10/2022 Are You Passively Exposed To Smoke? No [email or web address] Information not available 10/29/2020 How Much Tobacco Do You Smoke? No Information not available 10/29/2020 Do You Use Sunscreen Routinely? No Information not available 10/29/2020 Sex: Unknown Functional Status Question Answer Note LastModified by Organizat ion Details LastModified Time What is your level of alcohol consumption? None [email or web address] Information not available 10/29/2020 Do you or have you ever used smokeless tobacco? Never used [email or web address] Information not available 10/29/2020 Are you currently employed? Yes [email or web address] Information not available 10/29/2020 Are you able to care for yourself independently? 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 Occasional [email or web address] Information not available 10/29/2020 Mental Status None recorded. Family History Relationship Description Onset Age of this Age Resolved Age Notes LastModified by Organization Details LastModified Time Mother Heart disease [email or web address] Not available 2020 14:23:10 Father Diabetes mellitus [email or web address] Not available 2020 14:23:10 Medical History Condition Response Hospitalizations Y Obesity Y Allergies Y Chicken Pox Y Acne Y Gynecological History Statement/Question Response Abnormal Pap N HPV Vaccine N Date of Last Pap Smear 03/03/2017 Age at Menarche 14 Current Control Method None Most Recent Mammogram 06/01/2024 Age at First Child 42 Obstetrics History GPAL:G 0 P 0 0 0 0 Immunizations Vaccine Type Date Status Note Provider Nam e and Address Organization Details Recorded Time DTaP 1976 completed Samaria juan [facility] 10/03/2020 14:15:49 DTaP 1976 completed Samaria juan [facility] 10/03/2020 14:15:54 DTaP 1976 completed Samaria Castorena null, [facility] 10/03/2020 14:15:58 DTaP 11/26/1977 completed Samaria Castorena null, [facility] 10/03/2020 14:16:04 DTaP 11/26/1980 completed Samaria Castorena null, [facility] 10/03/2020 14:16:09 MMR 04/28/1977 completed Samaria Castorena null, [facility] 10/03/2020 14:16:31 MMR 01/26/1990 completed Samaria Castorena null, [facility] 10/03/2020 14:16:39 IPV 1976 completed Samaria Castorena null, [facility] 10/03/2020 14:16:51 IPV 1976 completed Samaria Castorena null, [facility] 10/03/2020 14:16:56 IPV 1976 completed Samaria Castorena null, [facility] 10/03/2020 14:17:01 IPV 11/26/1977 completed Samaria Castorena null, [facility] 10/03/2020 14:17:06 IPV 11/26/1980 completed Samaria Castorena null, [facility] 10/03/2020 14:17:10 COVID-19, mRNA, LNP-S, PF, 30 mcg/0.3 mL dose 08/28/2020 completed Michelle Ruiz MA null, [facility] 10/29/2020 14:28:11 COVID-19, mRNA, LNP-S, PF, 30 mcg/0.3 mL dose 09/28/2020 completed Michelle Ruiz MA null, [facility] 10/29/2020 14:28:19 Tdap 10/29/2020 completed Michelle Ruiz MA null, [facility] 10/29/2020 15:47:33 Past Encounters Encounter ID Performer Location Encounter Start Date Encounter Closed Date Diagnosis/Indication Diagnosis SNOMED-CT Code Diagnosis ICD10 Code Diagnosis IMO Codes Diagnosis Note [id number] Sara Garcia PA-C Main Office [address] [facility] [address] [place] [address] 10/29/2020 14:17:36 10/29/2020 15:44:12 Adult health examination 767130442 Z00.00 update Tdap today. Refer for mammograph y. Body mass index 40+ - severely obese 888784003 E66.01 Z68.41 recommend to see [facility] , start exercise activity by walking at least 30 minutes daily. Lower total calories and processed foods. Morbid obesity 440968293 E66.01 Hyperlipidemia 55392043 E78.5 Elevated blood-pressure reading without diagnosis of hypertension 892988773 R03.0 Lower sodium and caffeine. 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 Return for recheck in 4 weeks. Have all fasting labs done. Screening for malignant neoplasm of breast 517573193 Z12.39 Requires a tetanus booster 078038852 Z28.3 [id number] Migue Guardado MD Main Office [address] [facility] [address] [place] [address] 12/03/2020 15:06:53 12/03/2020 15:32:07 Elevated blood-pressure reading without diagnosis of hypertension 552243792 R03.0 Continue low sodium and caffeine diet and weight loss. Test BP weekly at school and f/u in 3 m. Hypertriglyceridemia 302 144578 E78.1 Low carbohydra te diet and weight loss discussed. Repeat lipids i 4 m. [id number] Sonal batres MD Main Office [address] [facility] [address] [facility] [place] [address] 04/30/2021 15:53:33 04/30/2021 17:01:27 Body mass index 30+ - obesity 498957343 Z68.38 Discussed portion control. Discussed trial of calorie log to bring during f/u visit. Refer to [facility] . If no change in weight in 3 months with diet and exercise, consider weight control medication Hypertriglyceridemia 302 029746 E78.1 Low carbohydra te diet and weight loss discussed. Repeat lipids in 4 m. Elevated blood-pressure reading without diagnosis of hypertension 172328960 R03.0 Continue low sodium and caffeine diet and weight loss. Obesity 197795620 E66.9 [id number] Migue Guardado MD Main Office [address] [facility] [address] [place] [address] 03/10/2022 15:52:54 03/10/2022 16:32:07 Elevated blood-pressure reading without diagnosis of hypertension 678785869 R03.0 Continue low sodium and caffeine diet and weight loss. Body mass index 30+ - obesity 299359300 Z68.39 Discussed portion control. Discussed trial of calorie log to bring during f/u visit. [facility] If no change in weight in 3 months with diet and exercise, consider weight control medication , GLP-1. Follow up in 3-4 month for PE. Obesity 501664132 E66.9 [id number] Migue Guardado MD Main Office [address] [facility] [address] [place] [address] 09/18/2022 15:37:35 09/18/2022 16:36:23 Adult health examination 724956534 Z00.00 up to date on vaccines and mammograph y. Body mass index 40+ - severely obese 743539440 E66.01 Z68.41 recommend to see medical nutrition management at [facility]. Check TSH. F/u here 4 m. Hypertriglyceridemia 302 694673 E78.1 Low carbohydra te diet and weight loss discussed. repeat lipids. Elevated blood-pressure reading without diagnosis of hypertension 924468342 R03.0 Continue low sodium and caffeine diet and weight loss. Screening for malignant neoplasm of cervix 807164266 Z12.4 Health Concerns Section Related Observation LastModified by Organization Detai ls LastModified Time None Recorded Concern Status LastModified by Organization Details LastModified Time None Recorded Advance Directives Directive None Recorded Payers Insurance Date Sequence Insurance Name Policy Number Policy Ramsay Covered Member ID Ramsay Member ID Guarantor Name 03/29/2024 1 [facility] [place] [place] [id number] Alejandra Mcmillan [id number] Alejandra Mcmillan Notes Date Note Type Note Provider Name and Address Organization Details Recorded Time 10/29/2020 text/html Generic HPI TemplateReported by [email or web address] year old female for new patient physical.Sees NURSE LEADER yearly . Dermoid cyst removed 8-9 yrs ago. Normal pap smears, regular menses. Overdue for mammography.Vaccines --- needs tetanus updated. Had COVID vaccines.Past medical history sign for obesity and mild LDL elevation. No previous BP elevations. Today BP is above norm.BMI is 40. Exercise-- not exercising regularly. Diet-- Regular adult. Family h/o metabolic disease and HTN , DM.Nonsmoker. ETOH-- none. PHQ score is 0.ROS as noted in the HPI Sara Garcia PA-C [address] [facility] [address], [place], [address], [facility] 10/29/2020 18:16:58 12/03/2020 text/html ROS as noted in the HPI 45 year old female for f/u on elevated BP. Today with normal BP here. 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 Readings ranged from 120s to one of 155, most up to 133, diastolic under 80. Pt. reports better diet and lost 4 lbs since October 29 visit. Labs showed no abnormality in glucose. TRG were elevated at 214 and HDL of 37. Pt. was advised to lower carbohydrates which she is attempting. Sara Garcia PA-C [address] [facility] [address], [place], [address], [facility] 12/03/2020 16:04:36 04/30/2021 text/html ROS as noted in the HPI 46 yr old F is here for elevated BP f/u. NO elevation in office today. No testing of BP on outside.-In November BP 130/80. BMI 38.8. TSH normal. Triglycerides 288. Discussed diet and weight loss options.-Pt states she knows what she has to do it just is difficult to start doing. Jeri juan, [facility] 05/06/2021 14:54:58 03/10/2022 text/html Generic HPI TemplateReported by [email or web address] yr old F is here for elevated BP f/u. NO elevation in office today (124/74)-BMI 39.5 today, 4lb wt gain from last April 2021. Triglycerides improved from 288 to 152 (07/2021). Discussed diet and weight loss options.-Pt states she that she has been eating smaller portions and more fruits and vegetable. 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 Dermoid cyst removed 8-9 yrs ago. Normal pap smears, regular menses. mammography normal end of 2021. NO prior colonoscopy no family h/o colon cancer.Vaccines --- Had COVID vaccines.BP elevations. Today BP is mildly above norm.BMI is 41. Pt. gained 9 additional lbs since last visit 7 months ago. Exercise-- not exercising regularly. Diet-- likes carbs. Family h/o metabolic disease and HTN , DM.Nonsmoker. ETOH-- none. PHQ score is 0. Past h/o elevated TRG. Last year was borderline. Glucose normal this month , no liver enzyme elevations.ROS as noted in the HPI Sara Garcia PA-C [address] [address], [place], [address], [facility] 09/18/2022 16:34:51 OBGyn Episode No OBEpisode recorded.
== END 2025-05-01 16:05 | disposition home or self-care (01) ==
LOC: HO.HMCH 15:39
PROVIDERS: PCP Physician Assistant; Visit Provider Physician Assistant
DX: E78.9 Disorder of lipoprotein metabolism, unspecified (principal); E66.812 Obesity, class 2; Z68.37 Body mass index [BMI] 37.0-37.9, adult

== ENCOUNTER 2025-05-22 10:31 | Outpatient (AMB) | payer BC, SELFPAY ==
--- NOTE | 2025-05-22 10:42 | MHC.OFFVIS ---
Vital Signs 05/22/25 10:44 Height 5 ft 4 in Weight 215 lb BMI 36.9 BP 120/76 Intake Visit Reasons: menopause symptoms Intake Note: pt c/o hotflashes, nightsweats, skipping periods Restrictive Preparation Operator: Restrictive Preparation Operator Present Allergies doxycycline Allergy (Intermediate, Verified 05/22/25 10:44) Rash Is last menstrual period known: Yes Last menstrual period: 03/05/25 HPI Comments Details: Patient is here today for a new patient consult due to perimenopausal symptoms. She is had 3 cycles this year in June, November and February. Cycles are typically 5 days. Experiencing intermittent hot flashes, and week full episodes approximately 02:00, at times can go back to sleep and sometimes not able to. Daily routine is waking at 04:00 but work. 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 Prior surgery for a x1, history of IVF. Has an 8-year-old daughter. Menarche age 13. Last mammogram May 2024 at [facility]. Denies any family history of breast cancer. Maternal history of cardiac disease and paternal history of diabetes. Currently not sexually active. 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/[employer] Cognitive needs: No Hearing needs: No Vision needs: No Female Reproductive History Menstrual Date of last menstrual period: 03/05/25 control method: none Total pregnancies: 1 Full term: 1 Number of Living Children: 1 Review of Systems Const All systems reviewed & are unremarkable except as noted in HPI and below Endo Reports no additional complaints Physical Exam Vital Signs: Last Vital Signs BP 120/76 05/22/25 10:44 BMI result Body Mass Index 36.9 Const General: cooperative, healthy appearing and no acute distress Psych Appearance: well kempt Attitude: cooperative Thought process: Normal thought process present Results AMB Test Urine AMB Test Urine Negative Last Edit by SAUL Fulton on 05/22/25 10:52 Results Reviewed Results Reviewed: Laboratory Last Values [facility] Clinic Negative 05/22/25 10:49 Assessment & Plan Assessment & Plan (1) Perimenopause: Code(s): N95.1 - Menopausal and female climacteric states Category: Medical Plan Discussed: perimenopausal and menopausal transitioning concerns. Menopause verses perimenopause. Menopause is definitive of 1 year of no menses or 12 months in succession. Report any abnormal uterine bleeding in example prolonged episodes, or short intervals less than 24 days. Encouraged healthy well-balanced diet and regular exercise. Reviewed website resources for: The [employer], Menopause.org website, Sleep podcast, and diet/exercise handouts. Encouraged review of all literature. Discuss the role of hormones, risks and benefits. The patient expressed understanding and agreement with the plan of care. All of her questions and concerns were addressed to the best of my ability. Follow up if desires to move forward with consideration for HRT. Advised to complete mammogram in May and to obtain lipid panel, review literature and then follow up in office pending to discuss interest in initiating hormonal therapy if interested. Reviewed when to call for any abnormal prolonged are closely based bleeding patterns. The patient expressed understanding and agreement with the plan of care. All of her questions and concerns were addressed to the best of my ability. This note is constructed using voice recognition software. While every effort has been made to ensure accuracy, transfer machine operator errors may have been included. Orders: Orders AMB HCG Urine Test Today Z32.02 - Encounter for test, result negative MM tomosynthesis screening BI Today Z12.31 - Encounter for screening mammogram for malignant neoplasm of breast Coding Level of Care Code New Pt Level 3 (45891) Diagnoses Perimenopause N95.1
[2025-05-22 10:44] VITALS: BP 120/76; BMI 36.9
--- OUTSIDE RECORDS SUMMARY | 2025-05-22 13:14 | XMS_ITS | Data Portability ---
Author Organization [facility], Main Office Address [address] [facility] [address] [place] [address] Care Team Providers Care Molder Name Role Phone SARA GARCIA Primary Care Provider Assessment No assessment recorded. Plan of Treatment Reminders Order Date Submit Date Provider Last Modified By Organization Details Last Modified Time Details Appointments None recorded. Lab lipid panel, serum 2022 023 [facility], [address], [address], [place], [address], 3 16:28:57 TSH, serum or plasma 2022 023 [facility], [address], [address], [place], [address], 3 16:28:27 CMP, serum or plasma 2021 022 [facility], [address], [address], [place], [address], 3 10:59:55 lipid panel, serum 2020 021 [facility], [address], [address], [place], [address], 2 10:33:28 TSH, serum or plasma 2020 021 [facility], [address], [address], [place], [address], 1 11:06:06 lipid panel, serum 2020 021 [facility], [address], [address], [place], [address], 11:00:17 CMP, serum or plasma 2020 021 [facility], [address], [address], [place], [address], 11:00:15 Referral bariatric surgery referral - For all patients interested in the surgical weight management pathway, they will enter through our web-based video training and questionnai re [email or web address] [email or web address] [email or web address] to get started Must have a BMI of 35 or greater to qualify for the program. (35-39 we must ask and document a co-morbidit y) Patient must provide height and weight 2022 023 [email or web address] [facility], [address] [place] [address] [address], [place], [address], 3 09:21:50 gynecologis t referral 2022 023 [email or web address] Not available 3 09:30:26 nutritionis t/dietitian referral 2020 021 [email or web address] Not available 1 11:33:14 nutritionis t/dietitian referral 2020 021 [email or web address] Not available 08:05:35 Procedures None recorded. Surgeries None recorded. Imaging MAMMO, screening, bilateral 2020 021 [email or web address] Not available 08:05:27 Medication Orders None recorded. Patient TargetsNo targets recorded. Patient Instructions Encounter Date Encounter Id Patient Instructions Last Modified By Organization Details Last Modified Time 10/29/2020 [id number] Starting a Weight-Loss Plan: Care Instructions Not available 10/29/2020 15:02:53 Nutrition Referral and Weight Management Follow-up Information Not available 10/29/2020 15:02:53 dash diet: care instructions Not available 10/29/2020 15:07:37 high blood pressure: care instructions Not available 10/29/2020 15:07:36 04/30/2021 [id number] Starting a Weight-Loss Plan: Care Instructions Not available 04/30/2021 16:58:31 Nutrition Referral and Weight Management Follow-up Information Not available 04/30/2021 16:58:31 09/18/2022 [id number] dash diet: care instructions Not available 09/18/2022 16:34:06 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 for Referral 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 for Body mass index 40+ - severely obese Referring Physician: Sara Garcia, Internal Medicine, Encounter Date: 10/29/2020 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 for Body mass index 30+ - obesity Referring Physician: Sara Garcia Internal Medicine, Encounter Date: 04/30/2021 Bariatric Surgery Referral f or Body mass index 40+ - severely obese For all patients interested in the surgical weight management pathway, they will enter through our web-based video training and questionnaire [email or web address] to get startedMust have a BMI of 35 or greater to qualify for the program. (35-39 we must ask and document a co-morbidity) Patient must provide height and weight Referring Physician: Sara Garcia Internal Medicine, Encounter Date: 09/18/2022 Title Specialist Referral for Sc reening for malignant neoplasm [...] Lay letter mailed to dayne barnes WSN: [id number] Orderi ng Physic cricket: Bradford Garcia Dictat ed By: Robi Del Real MD Dictat ed Date/T jill: 5:38 pm Review ed By: Robi Del Real MD Signed By: Robi Del Real MD Signed Date/T jill: 5:38 pm Transc ribed By: ALIZE Transc riptio n Date/T jill: 5:36 pm Birads : Dayne barnes Class: Outpat ient [email or web address] [facility] (Outpt Imaging) [address], [place], [address], 04/23/2022 09:37:07 04/22/20 22 04/22/2022 MAMMO , scree gabi, bilat eral No observ ation record ed. [facility] [address], [place], [address], 04/24/2022 11:40:44 05/07/20 23 05/06/2023 MAMMO , [...] Routin e annual screen ing. Examin ation 02359 and G0202. BI-RAD S one negati ve. Letter L3. Thank you for elmeri anna me to partic ipate in the care of this dayne t. WSN: [id number] Orderi ng Physic cricket: Bradford Garcia Dictat ed By: Jass Alonso MD Dictat ed Date/T jill: 8:22 am Review ed By: Jass Alonso MD Signed By: Jass Alonso MD Signed Date/T jill: 8:22 am Transc ribed By: ALIZE Transc riptio n Date/T jill: 8:22 am Birads : Patien t Class: Outpat ient [address] (Outpt Imaging) [address] , [place], [address], 05/07/2023 08:47:23 05/07/20 23 05/06/2023 MAMMO , scree gabi, digit al, bilat eral No observ ation record ed. [address] [facility] [place] [address] [facility] [place], [address], 05/07/2023 09:59:00 06/01/20 24 06/01/2024 MAMMO , scree gabi, digit al, bilat eral No observ ation record ed. [address] [facility] [place] 100 [place], [address], 06/02/2024 08:37:40 06/01/20 24 06/01/2024 MAMMO , [...] Lay letter mailed to dayne molly WSN: [id number] Orderi ng Physic cricket: Bradford Garcia Dictat ed By: Sophie Briceño MD Dictat ed Date/T jill: 5:35 pm Review ed By: Sophie Briceño MD Signed By: Sophie Briceño MD Signed Date/T jill: 5:35 pm Transc ribed By: CSB Transc riptio n Date/T jill: 5:33 pm Birads : Dayne barnes Class: Outpat ient [facility] (Outpt Imaging) [address] [place] [address], [address], 06/02/2024 08:38:15 Result Notes Documentation Provider Name [...] (Negative) Lay letter mailed to patient WSN: [id number] Ordering Physician: Sara Garcia Dictated By: Mary Del Real MD Dictated Date/Time: 04/22/22 5:38 pm Reviewed By: Mary Del Real MD Signed By: Mary Del Real MD Signed Date/Time: 04/22/22 5:38 pm Transcribed By: ALIZE Avionics Test Technician Date/Time: 04/22/22 5:36 pm Birads: Patient Class: [facility] La [facility] 09:37:07 Mammo, Screening, Digital, Bilateral : Bilateral full field digital breast tomosynthesis performed on a Xfire dimension with I CAD second look 7.2-H [...] interval change. Recommendation: Routine annual screening. Examination 27182 and G0202. BI-RADS one negative. Letter L3. Thank you for allowing me to participate in the care of this patient. WSN: [id number] Ordering Physician: Sara Garcia Dictated By: Jass Alonso MD Dictated Date/Time: 05/07/23 8:22 am Reviewed By: Jass Alonso MD Signed By: Jass Alonso MD Signed Date/Time: 05/07/23 8:22 am Transcribed By: ALIZE Avionics Test Technician Date/Time: 05/07/23 8:22 am Birads: Patient Class: [facility]07[facility]2023 08:47:23 Mammo, Screening, Digital, Bilateral : [...] (Negative) Lay letter mailed to patient WSN: [id number] Ordering Physician: Sara Garcia Dictated By: Sophie Briceño MD Dictated Date/Time: 06/01/24 5:35 pm Reviewed By: Sophie Briceño MD Signed By: Sophie Briceño MD Signed Date/Time: 06/01/24 5:35 pm Transcribed By: ALIZE Avionics Test Technician Date/Time: 06/01/24 5:33 pm Birads: Patient Class: Outpatient [facility]02[facility]2024 08:38:15 Problems Name Problem SNOMED Code Status Onset Date Resolution Date Notes Provider Name and Address Organization Details Recorded Time Varicella 46798557 Completed 197810/03/2020 [facility] 1 14:17:30 Hyperlipid emia 30223064 Completed 202011/27/2020 Sara Garcia PA-C [address] [address], [place], [address] , [facility] 1 13:51:07 Elevated blood-pres sure reading without diagnosis of hypertensi on 546947511 Active 2020 Sara Garcia PA-C [address] [address], [place], [address] , [facility] 1 15:07:21 Lyme disease 10756778 Completed 202010/29/2020 Sara Garcia PA-C [address] [address], [address] , [facility] 1 15:17:09 Hypertrigl yceridemia 685287333 Active 2020 Sara Garcia PA-C [address] [address], [address] , [facility] 1 13:51:15 Body mass index 40+ - severely obese 401185944 Active 2022 Sara Garcia PA-C [address], [place], [address] , [facility] 3 16:27:20 Problem Notes None recorded. Procedures Surgical History Date Name Laterality Status Provider Name and Address Organization Details Recorded Time 4 Most Recent Mammogram completed Lissa Fregoso [facility] 06/02/2024 08:37:34 2 Mammogram screening completed Ame De La Fuente [facility] 04/23/2022 09:36:58 7 Date of Last Pap Smear completed Bhavya Hartmann [facility] 10/04/2020 08:57:14 7 Caesarean Section completed Michelle Ruiz MA [facility] 10/29/2020 14:23:29 3 Removal of ovarian cyst(s) completed Michelle Ruiz MA [facility] 10/29/2020 14:30:22 Imaging Results None recorded. Procedure Notes None recorded. Medical Equipment None Reported. Allergies Allergen ID Allergen Name Allergen Category Reaction Reaction Severity Criticality Documentation Date Start Date Code Code System Note Provider Name and Address Organization Details Recorded Time 46313 doxycycli ne Not available rash moderate Not available 10/29/2020 3640 RxNorm Michelle Ruiz MA null, [facility] 1 14:29:01 Medications Name Sig Start Date Stop Date Status Note LastModified by Organization Details LastModified Time Afluria Qd 2019- (36 mos up)(PF)6 0 mcg (15 mcg x4)/0.5 mL IM syringe PHARMACY ADMINISTERED 10/29 completed Not Available Not Available Not Available Vitals Date Recorded Body height Body mass index (BMI) Body weight Heart rate Oxygen saturation Body temperature Systolic And Diastolic Provider Name and Address Organization Details Last Updated DateTime 3 162.56 cm 41 kg/m2 970899. 58 g 75 /min 98 % 98.2 [degF] 135/81 mm[Hg] Michelle Ruiz MA [facility] 3 15:54:05 Date Recorded Systolic And Diastolic Provider Name and Address Organization Details Last Updated DateTime 10/29/2020 154/90 mm[Hg] Sara Garcia PA-C [address], [place], [address], [facility] 10/29/2020 15:25:06 Date Recorded Body weight Body mass index (BMI) Body height Heart rate Oxygen saturation Body temperature Systolic And Diastolic Provider Name and Address Organization Details Last Updated DateTime 1 606888. 02 g 40 kg/m2 162.56 cm 62 /min 98 % 98.78 [degF] 155/74 mm[Hg] Michelle Ruiz MA [facility] 1 14:32:48 Date Recorded Body height Body mass index (BMI) Body weight Oxygen saturation Heart rate Body temperature Systolic And Diastolic Provider Name and Address Organization Details Last Updated DateTime 1 162.56 cm 39.4 kg/m2 302096. 75 g 100 % 72 /min 98.24 [degF] 130/77 mm[Hg] [facility] 1 15:16:48 Date Recorded Body height Body mass index (BMI) Body weight Heart rate Oxygen saturation Body temperature Systolic And Diastolic Provider Name and Address Organization Details Last Updated DateTime 2 162.56 cm 39.5 kg/m2 367029. 25 g 76 /min 98 % 97.88 [degF] 124/74 mm[Hg] Reese Cummings MA [facility] 2 15:59:04 Date Recorded Body height Body mass index (BMI) Body weight Heart rate Oxygen saturation Body temperature Provider Name and Address Organization Details Last Updated DateTime 1 162.56 cm 38.8 kg/m2 069676. 88 g 75 /min 98 % 98.78 [degF] Michelle Ruiz MA [facility] 1 16:18:41 Date Recorded Systolic And Diastolic Provider Name and Address Organization Details Last Updated DateTime 04/30/2021 122/78 mm[Hg] Kalpana Benites [facility] 04/30/2021 16:42:59 Social History Question Answer Notes LastModified by Organizat ion Details LastModified Time Tobacco Smoking Status Never Smoker JAIDA Weeks, [facility] 10/29/2020 14:23:25 Is Blood Transfusion Acceptable In An Emergency? Yes [email or web address] Information not available 10/29/2020 What Is Your Level Of Caffeine Consumption? Occasional [email or web address] Information not available 10/29/2020 How Much Tobacco Do You Chew? None [email or web address] Information not available 10/29/2020 What Type Of Diet Are You Following? REGULAR [email or web address] Information not available 10/29/2020 Live Alone Or With Others? With Others Mom Dad Daughter(4 ) Aaron Information not available 03/10/2022 Do You Take Precautions To Prevent Distracted Driving? Yes [email or web address] Information not available 10/29/2020 How Often Do You Need To Have Someone Help You When You Read Instructions, Pamphlets, Or Other Written Material From Your Doctor Or Pharmacy? Never [email or web address] Information not available 10/29/2020 Have You Or Anyone In Your Household Had Any Of The Following Symptoms In The Last 14 Days: Sore Throat, Cough, Chills, Body Aches For Unknown Reasons, Shortness Of Breath For Unknown Reasons, Loss Of Smell, Loss Of Taste, Fever At Or Greater Than 100 Degrees Fahrenheit? No [email or web address] Information not available 12/03/2020 Are You Or Anyone In Your Household A Health Care Provider Or Emergency Responder? No [email or web address] Information not available 12/03/2020 To The Best Of Your Knowledge Have You Been In Close Proximity To Any Individual Who Tested Positive For COVID-19? No Information not available 10/29/2020 Have You Recently Traveled To A COVID-19 High Risk Area Or Gathering In The Last 10 Days? No Information not available 12/03/2020 How Many Children Do You Have? 1 Information not available 10/29/2020 Seat Belts Used Routinely Yes Information not available 03/10/2022 Are You Sexually Active? No [email or web address] Information not available 10/29/2020 Smoke Alarm In Home Yes Information not available 03/10/2022 Are You Passively Exposed To Smoke? No Information not available 10/29/2020 How Much Tobacco Do You Smoke? No [email or web address] Information not available 10/29/2020 Do You Use Sunscreen Routinely? No [email or web address] Information not available 10/29/2020 Sex: Unknown Functional Status Question Answer Note LastModified by Organizat ion Details LastModified Time What is your level of alcohol consumption? None [email or web address] Information not available 10/29/2020 Do you or have you ever used smokeless tobacco? Never used smokeless tobacco Information not available 10/29/2020 Are you currently employed? Yes [email or web address] Information not available 10/29/2020 Are you able to care for yourself independently? 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 Occasional [email or web address] Information not available 10/29/2020 Mental Status None recorded. Family History Relationship Description Onset Age of this Age Resolved Age Notes LastModified by Organization Details LastModified Time Mother Heart disease Not available 2020 14:23:10 Father Diabetes mellitus [email or web address] Not available 2020 14:23:10 Medical History Condition [...] Recorded Time DTaP 1976 completed Samaria juan [facility] 10/03/2020 14:15:49 D[facility]P 1976 [facility]2020 14:15:54 DTaP 1976 completed Samaria juan [facility] 10/03/2020 14:15:58 DTaP 11/26/1977 completed Samaria Castorena null, [facility] 10/03/2020 14:16:04 DTaP 11/26/1980 completed Samaria Castorena null, [facility] 10/03/2020 14:16:09 MMR 04/28/1977 completed Samaria Castorena null, [facility] 10/03/2020 14:16:31 MMR 01/26/1990 completed Samaria Castorena null, [facility] 10/03/2020 14:16:39 IPV 1976 completed Samaria Castorena null, [facility] 10/03/2020 14:16:51 IPV 1976 completed Samaria Castorena null, [facility] 10/03/2020 14:16:56 IPV 1976 completed Samaria Castorena null, [facility] 10/03/2020 14:17:01 IPV 11/26/1977 completed Samaria Castorena null, [facility] 10/03/2020 14:17:06 IPV 11/26/1980 completed Samaria Castorena null, [facility] 10/03/2020 14:17:10 COVID-19, mRNA, LNP-S, PF, 30 mcg/0.3 mL dose 08/28/2020 completed Michelle Ruiz MA null, [facility] 10/29/2020 14:28:11 COVID-19, mRNA, LNP-S, PF, 30 mcg/0.3 mL dose 09/28/2020 completed Michelle Ruiz MA null, [facility] 10/29/2020 14:28:19 Tdap 10/29/2020 completed Michelle Ruiz MA null, [facility] 10/29/2020 15:47:33 Past Encounters Encounter ID Performer Location Encounter Start Date Encounter Closed Date Diagnosis/Indication Diagnosis SNOMED-CT Code Diagnosis ICD10 Code Diagnosis IMO Codes Diagnosis Note [id number] Sara Garcia PA-C Main Office [address] [facility] [address] [place] [address] 10/29/2020 14:17:36 10/29/2020 15:44:12 Adult health examination 682550520 Z00.00 update Tdap today. Refer for mammograph y. Body mass index 40+ - severely obese 857208370 E66.01 Z68.41 [facility], start exercise activity by walking at least 30 minutes daily. Lower total calories and processed foods. Morbid obesity 941993263 E66.01 Hyperlipidemia 71722201 E78.5 Elevated blood-pressure reading without diagnosis of hypertension 008043731 R03.0 Lower sodium and caffeine. 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 Return for recheck in 4 weeks. Have all fasting labs done. Screening for malignant neoplasm of breast 479236955 Z12.39 Requires a tetanus booster 564614729 Z28.3 [id number] Migue Guardado MD Main Office [address] [facility] [address] [place] [address] 12/03/2020 15:06:53 12/03/2020 15:32:07 Elevated blood-pressure reading without diagnosis of hypertension 725852866 R03.0 Continue low sodium and caffeine diet and weight loss. Test BP weekly at school and f/u in 3 m. Hypertriglyceridemia 302 131092 E78.1 Low carbohydra te diet and weight loss discussed. Repeat lipids i 4 m. [id number] Sonal batres MD Main Office [address] [facility] [address] [place] [address] 04/30/2021 15:53:33 04/30/2021 17:01:27 Body mass index 30+ - obesity 193312425 Z68.38 Discussed portion control. Discussed trial of calorie log to bring during f/u visit. Refer to [facility]. If no change in weight in 3 months with diet and exercise, consider weight control medication Hypertriglyceridemia 302 002730 E78.1 Low carbohydra te diet and weight loss discussed. Repeat lipids in 4 m. Elevated blood-pressure reading without diagnosis of hypertension 394358884 R03.0 Continue low sodium and caffeine diet and weight loss. Obesity 460351770 E66.9 [id number] Migue Guardado MD Main Office [address] [facility] [address] [place] [address] 03/10/2022 15:52:54 03/10/2022 16:32:07 Elevated blood-pressure reading without diagnosis of hypertension 839610807 R03.0 Continue low sodium and caffeine diet and weight loss. Body mass index 30+ - obesity 060579242 Z68.39 Discussed portion control. Discussed trial of calorie log to bring during f/u visit. [facility]. If no change in weight in 3 months with diet and exercise, consider weight control medication , GLP-1. Follow up in 3-4 month for PE. Obesity 364354959 E66.9 [id number] Migue Guardado MD Main Office [address] [place] [address] 09/18/2022 15:37:35 09/18/2022 16:36:23 Adult health examination 327334441 Z00.00 up to date on vaccines and mammograph y. Body mass index 40+ - severely obese 409686771 E66.01 Z68.41 recommend to see medical nutrition management at [facility]. Check TSH. F/u here 4 m. Hypertriglyceridemia 302 031839 E78.1 Low carbohydra te diet and weight loss discussed. repeat lipids. Elevated blood-pressure reading without diagnosis of hypertension 896622655 R03.0 Continue low sodium and caffeine diet and weight loss. Screening for malignant neoplasm of cervix 220827538 Z12.4 Health Concerns Section Related Observation LastModified by Organization Detai ls LastModified Time None Recorded Concern Status LastModified by Organization Details LastModified Time None Recorded Advance Directives Directive None Recorded Payers Insurance Date Sequence Insurance Name Policy Number Policy Ramsay Covered Member ID Ramsay Member ID Guarantor Name 03/29/[address] [place] [address] ([facility] [id number] Alejandra Mcmillan [id number] Alejandra Mcmillan Notes Date Note Type Note Provider Name and Address Organization Details Recorded Time 10/29/2020 text/html Generic HPI TemplateReported by [email or web address] year old female for new patient physical.Sees [employer] yearly . Dermoid cyst removed 8-9 yrs [...] in the HPI Sara Garcia PA-C [address] [facility] [address], [place], [address], [facility] 10/29/2020 18:16:58 12/03/2020 text/html ROS as noted [...] she is attempting. Sara Garcia PA-C [address] [facility] [address], [place], [address], [facility] 12/03/2020 16:04:36 04/30/2021 text/html ROS as noted in the HPI 46 yr old F is here for elevated BP f/u. NO elevation in office today. No testing of BP on outside.-In November BP 130/80. BMI 38.8. TSH normal. Triglycerides 288. Discussed diet and weight loss options.-Pt states she knows what she has to do it just is difficult to start doing. Jeri juan [facility] 05/06/2021 14:54:58 03/10/2022 text/html Generic HPI TemplateReported by [email or web address] yr old F is here for elevated BP f/u. NO elevation in office today (124/74)-BMI 39.5 today, 4lb wt gain from last April 2021. Triglycerides improved from 288 to 152 (07/2021). Discussed diet and weight loss options.-Pt states she that she has been eating smaller portions and more fruits and vegetable. 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 Dermoid cyst removed 8-9 yrs [...] in the HPI Sara Garcia PA-C [address] [address], [place], [address], [facility] 09/18/2022 16:34:51 OBGyn Episode No OBEpisode recorded.
== END 2025-05-22 11:17 | disposition home or self-care (01) ==
LOC: HO.HWS 10:31
PROVIDERS: PCP Physician Assistant; Visit Provider Advanced Practice Midwife
DX: N95.1 Menopausal and female climacteric states (principal); Z32.02 Encounter for pregnancy test, result negative
CPT/HCPCS: 99203

== ENCOUNTER → 2025-05-22 10:31 | Outpatient (BNVA) | payer BC, SELFPAY | PROVIDERS: PCP Physician Assistant; Visit Provider Advanced Practice Midwife | DX: Z32.02 Encounter for pregnancy test, result negative (principal) | CPT/HCPCS: 81025 ==

== ENCOUNTER 2025-06-22 16:12 | Outpatient (REF) | payer BC, SELFPAY ==
--- NOTE | ~2025-06-22 | MM_ITS ---
EXAMINATION: MM SCREENING DIGITAL BREAST TOMOSYNTHESIS, BILATERAL CLINICAL INFORMATION: Screening. Asymptomatic. COMPARISON: Mammography: Comparison is made with available priors TECHNIQUE: Digital breast mammography with tomosynthesis is performed in both the craniocaudal and mediolateral oblique views along with computer-aided detection (CAD). FINDINGS: There are scattered areas of fibroglandular density. There are no significant masses, abnormal calcifications, or other abnormalities. MM/MM tomosynthesis screening BI IMPRESSION: No mammographic evidence of malignancy. ASSESSMENT: BI-RADS Category 1: Negative RECOMMENDATION: Routine annual mammography screening. 1 year F/U This examination should not preclude the clinical evaluation of a suspicious palpable abnormality. This patient's information was entered into a reminder system with a target due date for their next mammogram. Electronically signed by: Juliette Black DO 06/26/2025 01:43 PM LORIE
--- OUTSIDE RECORDS SUMMARY | 2025-06-22 16:14 | XMS_ITS | Data Portability ---
Author Organization [facility], Main Office Address [address] [facility] [address] [place] [address] Care Team Providers Care Refining Engineer Name Role Phone SARA GARCIA Primary Care Provider [phone] Assessment No assessment recorded. Plan of Treatment Reminders Order Date Submit Date Provider Last Modified By Organization Details Last Modified Time Details Appointments None recorded. Lab lipid panel, serum 2022 023 [facility], [address], [address], [place], [address], 3 16:28:57 TSH, serum or plasma 2022 023 [facility], [address], [address], [place], [address], 3 16:28:27 CMP, serum or plasma 2021 022 [facility], [address], [address], [place], [address], 3 10:59:55 lipid panel, serum 2020 021 [facility], [address], [address], [place], [address], 2 10:33:28 TSH, serum or plasma 2020 021 [facility], [address], [address], [place], [address], 1 11:06:06 lipid panel, serum 2020 021 [facility], [address], [address], [place], [address], 11:00:17 CMP, serum or plasma 2020 021 [facility], [address], [address], [place], [address], 11:00:15 Referral bariatric surgery referral - For all patients interested in the surgical weight management pathway, they will enter through our web-based video training and questionnai re [email or web address] [email or web address] [email or web address] to get started Must have a BMI of 35 or greater to qualify for the program. (35-39 we must ask and document a co-morbidit y) Patient must provide height and weight 2022 023 [email or web address] [facility], [address] [place] [address] [address], [place], [address], 3 09:21:50 gynecologis t referral 2022 023 [email or web address] Not available 3 09:30:26 nutritionis t/dietitian referral 2020 021 [email or web address] Not available 1 11:33:14 nutritionis t/dietitian referral 2020 021 [email or web address] Not available 08:05:35 Procedures None recorded. Surgeries None recorded. Imaging MAMMO, screening, bilateral 2020 021 [email or web address] Not available 08:05:27 Medication Orders None recorded. Patient TargetsNo targets recorded. Patient Instructions Encounter Date Encounter Id Patient Instructions Last Modified By Organization Details Last Modified Time 10/29/2020 [id number] Starting a Weight-Loss Plan: Care Instructions Not available 10/29/2020 15:02:53 Nutrition Referral and Weight Management Follow-up Information Not available 10/29/2020 15:02:53 dash diet: care instructions Not available 10/29/2020 15:07:37 high blood pressure: care instructions Not available 10/29/2020 15:07:36 04/30/2021 [id number] Starting a Weight-Loss Plan: Care Instructions Not available 04/30/2021 16:58:31 Nutrition Referral and Weight Management Follow-up Information Not available 04/30/2021 16:58:31 09/18/2022 [id number] dash diet: care instructions Not available 09/18/2022 16:34:06 Reason for Referral 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 Refer ral for Body mass index 40+ - severely obese Referring Physician: Sara Garcia, Internal Medicine, Encounter Date: 10/29/2020 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 Refer ral for Body mass index 30+ - obesity Referring Physician: Sara Garcia Internal Medicine, Encounter Date: 04/30/2021 Bariatric Surgery Referral f or Body mass index 40+ - severely obese For all patients interested in the surgical weight management pathway, they will enter through our web-based video training and questionnaire [email or web address] to get startedMust have a BMI of 35 or greater to qualify for the program. (35-39 we must ask and document a co-morbidity) Patient must provide height and weight Referring Physician: Sara Garcia Internal Medicine, Encounter Date: 09/18/2022 Equine Science Instructor Referral for Sc reening for malignant neoplasm [...] Lay letter mailed to dayne barnes WSN: [id number] Orderi ng Physic cricket: Bradford Garcia Dictat ed By: Robi Del Real MD Dictat ed Date/T jill: 5:38 pm Review ed By: Robi Del Real MD Signed By: Robi Del Real MD Signed Date/T jill: 5:38 pm Transc ribed By: ALIZE Transc riptio n Date/T jill: 5:36 pm Birads : Dayne barnes Class: Outpat ient [email or web address] [facility] (Outpt Imaging) [address], [place], [address], 04/23/2022 09:37:07 04/22/20 22 04/22/2022 MAMMO , scree gabi, bilat eral No observ ation record ed. [email or web address] [facility] [address], [place], [address], 04/24/2022 11:40:44 05/07/20 23 05/06/2023 MAMMO , [...] Routin e annual screen ing. Examin ation 01771 and G0202. BI-RAD S one negati ve. Letter L3. Thank you for elmeri anna me to partic ipate in the care of this dayne t. WSN: [id number] Orderi ng Physic cricket: Bradford Garcia Dictat ed By: Jass Alonso MD Dictat ed Date/T jill: 8:22 am Review ed By: Jass Alonso MD Signed By: Jass Alonso MD Signed Date/T jill: 8:22 am Transc ribed By: ALIZE Transc riptio n Date/T jill: 8:22 am Birads : Patien t Class: Outpat ient [address] (Outpt Imaging) [address] , [place], [address], 05/07/2023 08:47:23 05/07/20 23 05/06/2023 MAMMO , scree gabi, digit al, bilat eral No observ ation record ed. [address] [facility] [place] [facility] [place], [address], 05/07/2023 09:59:00 06/01/20 24 06/01/2024 MAMMO , scree gabi, digit al, bilat eral No observ ation record ed. [address] [facility] [place] [address] [place], [address], 06/02/2024 08:37:40 06/01/20 24 06/01/2024 MAMMO , [...] Lay letter mailed to dayne molly WSN: [id number] Orderi ng Physic cricket: Bradford Garcia Dictat ed By: Sophie Briceño MD Dictat ed Date/T jill: 5:35 pm Review ed By: Sophie Briceño MD Signed By: Sophie Briceño MD Signed Date/T jill: 5:35 pm Transc ribed By: CSB Transc riptio n Date/T jill: 5:33 pm Birads : Dayne barnes Class: Outpat ient [email or web address] [facility] (Outpt Imaging) [address] [place] [address], [address], 06/02/2024 08:38:15 Result Notes Documentation Provider Name [...] (Negative) Lay letter mailed to patient WSN: [id number] Ordering Physician: Sara Garcia Dictated By: Mary Del Real MD Dictated Date/Time: 04/22/22 5:38 pm Reviewed By: Mary Del Real MD Signed By: Mary Del Real MD Signed Date/Time: 04/22/22 5:38 pm Transcribed By: ALIZE Nylon Mender Date/Time: 04/22/22 5:36 pm Birads: Patient [facility] 09:37:07 Mammo, Screening, Digital, Bilateral : Bilateral full field digital breast tomosynthesis performed on a [employer] dimension with I CAD second look 7.2-H [...] interval change. Recommendation: Routine annual screening. Examination 97037 and G0202. BI-RADS one negative. Letter L3. Thank you for allowing me to participate in the care of this patient. WSN: [id number] Ordering Physician: Sara Garcia Dictated By: Jass Alonso MD Dictated Date/Time: 05/07/23 8:22 am Reviewed By: Jass Alonso MD Signed By: Jass Alonso MD Signed Date/Time: 05/07/23 8:22 am Transcribed By: ALIZE Nylon Mender Date/Time: 05/07/23 8:22 am Birads: Patient Class[facility] 05/07/2023 08:47:23 Mammo, Screening, Digital, Bilateral : [...] (Negative) Lay letter mailed to patient WSN: [id number] Ordering Physician: Sara Garcia Dictated By: Sophie Briceño MD Dictated Date/Time: 06/01/24 5:35 pm Reviewed By: Sophie Briceño MD Signed By: Sophie Briceño MD Signed Date/Time: 06/01/24 5:35 pm Transcribed By: ALIZE Nylon Mender Date/Time: 06/01/24 5:33 pm Birads: Patient Class: [facility]/02/2024 08:38:15 Problems Name Problem SNOMED Code Status Onset Date Resolution Date Notes Provider Name and Address Organization Details Recorded Time Varicella 72088057 Completed 197810/03/2020 [facility] 1 14:17:30 Hyperlipid emia 96804103 Completed 202011/27/2020 Sara Garcia PA-C [address] [address], [place], [address] , [facility] 1 13:51:07 Elevated blood-pres sure reading without diagnosis of hypertensi on 387984351 Active 2020 Sara Garcia PA-C [address] [address], [place], [address] , [facility] 1 15:07:21 Lyme disease 24359508 Completed 202010/29/2020 Sara Garcia PA-C [address] [address], [address] , [facility] 1 15:17:09 Hypertrigl yceridemia 799920230 Active 2020 Sara Garcia PA-C [address] [address], [address] , [facility] 1 13:51:15 Body mass index 40+ - severely obese 102865134 Active 2022 Sara Garcia PA-C [address], [place], [address] , [facility] 3 16:27:20 Problem Notes None recorded. Procedures Surgical History Date Name Laterality Status Provider Name and Address Organization Details Recorded Time 4 Most Recent Mammogram completed Lissa Fregoso [facility] 06/02/2024 08:37:34 2 Mammogram screening completed Ame De La Fuente [facility] 04/23/2022 09:36:58 7 Date of Last Pap Smear completed Bhavya Hartmann [facility] 10/04/2020 08:57:14 7 Caesarean Section completed Michelle Ruiz MA [facility] 10/29/2020 14:23:29 3 Removal of ovarian cyst(s) completed Michelle Ruiz MA [facility] 10/29/2020 14:30:22 Imaging Results None recorded. Procedure Notes None recorded. Medical Equipment None Reported. Allergies Allergen ID Allergen Name Allergen Category Reaction Reaction Severity Criticality Documentation Date Start Date Code Code System Note Provider Name and Address Organization Details Recorded Time 30520 doxycycli ne Not available rash moderate Not available 10/29/2020 3640 RxNorm Michelle Ruiz MA null, [facility] 1 14:29:01 Medications Name Sig Start Date [...] Updated DateTime 3 162.56 cm 41 kg/m2 549835. 58 g 75 /min 98 % 98.2 [degF] 135/81 mm[Hg] Michelle Ruiz MA [facility] 3 15:54:05 Date Recorded Systolic And Diastolic Provider Name and Address Organization Details Last Updated DateTime 10/29/2020 154/90 mm[Hg] Sara Garcia PA-C [address], [place], [address], [facility] 10/29/2020 15:25:06 Date Recorded Body weight Body mass index (BMI) Body height Heart rate Oxygen saturation Body temperature Systolic And Diastolic Provider Name and Address Organization Details Last Updated DateTime 1 624031. 02 g 40 kg/m2 162.56 cm 62 /min 98 % 98.78 [degF] 155/74 mm[Hg] Michelle Ruiz MA [facility] 1 14:32:48 Date Recorded Body height Body mass index (BMI) Body weight Oxygen saturation Heart rate Body temperature Systolic And Diastolic Provider Name and Address Organization Details Last Updated DateTime 1 162.56 cm 39.4 kg/m2 173173. 75 g 100 % 72 /min 98.24 [degF] 130/77 mm[Hg] [facility] 1 15:16:48 Date Recorded Body height Body mass index (BMI) Body weight Heart rate Oxygen saturation Body temperature Systolic And Diastolic Provider Name and Address Organization Details Last Updated DateTime 2 162.56 cm 39.5 kg/m2 014124. 25 g 76 /min 98 % 97.88 [degF] 124/74 mm[Hg] Reese Cummings MA [facility] 2 15:59:04 Date Recorded Body height Body mass index (BMI) Body weight Heart rate Oxygen saturation Body temperature Provider Name and Address Organization Details Last Updated DateTime 1 162.56 cm 38.8 kg/m2 926223. 88 g 75 /min 98 % 98.78 [degF] Michelle Ruiz MA [facility] 1 16:18:41 Date Recorded Systolic And Diastolic Provider Name and Address Organization Details Last Updated DateTime 04/30/2021 122/78 mm[Hg] Kalpana Benites [facility] 04/30/2021 16:42:59 Social History Question Answer Notes LastModified by Organizat ion Details LastModified Time Tobacco Smoking Status Never Smoker JAIDA Weeks, [facility] 10/29/2020 14:23:25 Is Blood Transfusion Acceptable In An Emergency? Yes [email or web address] Information not available 10/29/2020 What Is Your Level Of Caffeine Consumption? Occasional [email or web address] Information not available 10/29/2020 How Much Tobacco Do You Chew? None [email or web address] Information not available 10/29/2020 What Type Of Diet Are You Following? REGULAR [email or web address] Information not available 10/29/2020 Live Alone Or With Others? With Others Mom Dad Daughter(4 ) Aaron Information not available 03/10/2022 Do You Take Precautions To Prevent Distracted Driving? Yes [email or web address] Information not available 10/29/2020 How Often Do [...] Or Greater Than 100 Degrees Fahrenheit? No [email or web address] Information not available 12/03/2020 Are You Or Anyone In Your Household A Health Care Provider Or Emergency Responder? No [email or web address] Information not available 12/03/2020 To The Best Of Your Knowledge Have You Been In Close Proximity To Any Individual Who Tested Positive For COVID-19? No Information not available 10/29/2020 Have You Recently Traveled To A COVID-19 High Risk Area Or Gathering In The Last 10 Days? No [email or web address] Information not available 12/03/2020 How Many Children Do You Have? 1 [email or web address] Information not available 10/29/2020 Seat Belts Used Routinely Yes Information not available 03/10/2022 Are You Sexually Active? No Information not available 10/29/2020 Smoke Alarm In [...] is your level of alcohol consumption? None [email or web address] Information not available 10/29/2020 Do you or have you ever used smokeless tobacco? Never used smokeless tobacco [email or web address] Information not available 10/29/2020 Are you currently employed? Yes Information not available 10/29/2020 Are you able to care for yourself independently? 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 Occasional [email or web address] Information not available 10/29/2020 Mental Status None recorded. Family History Relationship Description Onset Age of this Age Resolved Age Notes LastModified by Organization Details LastModified Time Mother Heart disease [email or web address] Not available 2020 14:23:10 Father Diabetes mellitus [email or web address] Not available 2020 14:23:10 Medical History Condition Response Obesity Y Hospitalizations Y Allergies Y Chicken Pox Y Acne [...] Recorded Time DTaP 1976 completed Samaria juan [facility] 10/03/2020 14:15:49 DTaP 1976 completed [facility] 10/[facility]/2020 14:15:54 DTaP 1976 completed Samaria juan [facility] 10/03/2020 14:15:58 DTaP 11/26/1977 completed Samaria Castorena null, [facility] 10/03/2020 14:16:04 DTaP 11/26/1980 completed Samaria Castorena null, [facility] 10/03/2020 14:16:09 MMR 04/28/1977 completed Samaria Castorena null, [facility] 10/03/2020 14:16:31 MMR 01/26/1990 completed Samaria Castorena null, [facility] 10/03/2020 14:16:39 IPV 1976 completed Samaria Castorena null, [facility] 10/03/2020 14:16:51 IPV 1976 completed Samaria Castorena null, [facility] 10/03/2020 14:16:56 IPV 1976 completed Samaria Castorena null, [facility] 10/03/2020 14:17:01 IPV 11/26/1977 completed Samaria Castorena null, [facility] 10/03/2020 14:17:06 IPV 11/26/1980 completed Samaria Castorena null, [facility] 10/03/2020 14:17:10 COVID-19, mRNA, LNP-S, PF, 30 mcg/0.3 mL dose 08/28/2020 completed Michelle Ruiz MA null, [facility] 10/29/2020 14:28:11 COVID-19, mRNA, LNP-S, PF, 30 mcg/0.3 mL dose 09/28/2020 completed Michelle Ruiz MA null, [facility] 10/29/2020 14:28:19 Tdap 10/29/2020 completed Michelle Ruiz MA null, [facility] 10/29/2020 15:47:33 Past Encounters Encounter ID Performer Location Encounter Start Date Encounter Closed Date Diagnosis/Indication Diagnosis SNOMED-CT Code Diagnosis ICD10 Code Diagnosis IMO Codes Diagnosis Note [id number] Sara Garcia PA-C Main Office [address] [facility] [address] [facility] [place] [address] 10/29/2020 14:17:36 10/29/2020 15:44:12 Adult health examination 358082711 Z00.00 update Tdap today. Refer for mammograph y. Body mass index 40+ - severely obese 234520233 E66.01 Z68.41 [facility], start exercise activity by walking at least 30 minutes daily. Lower total calories and processed foods. Morbid obesity 738522775 E66.01 Hyperlipidemia 24112590 E78.5 Elevated blood-pressure reading without diagnosis of hypertension 513081545 R03.0 Lower sodium and caffeine. 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 Return for recheck in 4 weeks. Have all fasting labs done. Screening for malignant neoplasm of breast 591185141 Z12.39 Requires a tetanus booster 822659156 Z28.3 [id number] Migue Guardado MD Main Office [address] [facility] [address] [place] [address] 12/03/2020 15:06:53 12/03/2020 15:32:07 Elevated blood-pressure reading without diagnosis of hypertension 086188602 R03.0 Continue low sodium and caffeine diet and weight loss. Test BP weekly at school and f/u in 3 m. Hypertriglyceridemia 302 680012 E78.1 Low carbohydra te diet and weight loss discussed. Repeat lipids i 4 m. [id number] Sonal batres MD Main Office [address] [facility] [address] [facility] [place] [address] 04/30/2021 15:53:33 04/30/2021 17:01:27 Body mass index 30+ - obesity 777296442 Z68.38 Discussed portion control. Discussed trial of calorie log to bring during f/u visit. [facility]. If no change in weight in 3 months with diet and exercise, consider weight control medication Hypertriglyceridemia 302 287951 E78.1 Low carbohydra te diet and weight loss discussed. Repeat lipids in 4 m. Elevated blood-pressure reading without diagnosis of hypertension 131969506 R03.0 Continue low sodium and caffeine diet and weight loss. Obesity 550912872 E66.9 [id number] Migue Guardado MD Main Office [address] [facility] [address] [place] [address] 03/10/2022 15:52:54 03/10/2022 16:32:07 Elevated blood-pressure reading without diagnosis of hypertension 914976032 R03.0 Continue low sodium and caffeine diet and weight loss. Body mass index 30+ - obesity 207352143 Z68.39 Discussed portion control. Discussed trial of calorie log to bring during f/u visit. [facility] If no change in weight in 3 months with diet and exercise, consider weight control medication , GLP-1. Follow up in 3-4 month for PE. Obesity 714895033 E66.9 [id number] Migue Guardado MD Main Office [address] [place] [address] 09/18/2022 15:37:35 09/18/2022 16:36:23 Adult health examination 474388646 Z00.00 up to date on vaccines and mammograph y. Body mass index 40+ - severely obese 760613749 E66.01 Z68.41 recommend to see medical nutrition management at [facility]. Check TSH. F/u here 4 m. Hypertriglyceridemia 302 253899 E78.1 Low carbohydra te diet and weight loss discussed. repeat lipids. Elevated blood-pressure reading without diagnosis of hypertension 974316950 R03.0 Continue low sodium and caffeine diet and weight loss. Screening for malignant neoplasm of cervix 061715009 Z12.4 Health Concerns Section Related Observation LastModified by Organization Detai ls LastModified Time None Recorded Concern Status LastModified by Organization Details LastModified Time None Recorded Advance Directives Directive None Recorded Payers Insurance Date Sequence Insurance Name Policy Number Policy Ramsay Covered Member ID Ramsay Member ID Guarantor Name 03/29/[address] [place] [address] ([facility] [id number] Alejandra Mcmillan [id number] Alejandra Mcmillan Notes Date Note Type Note Provider Name and Address Organization Details Recorded Time 10/29/2020 text/html Generic HPI TemplateReported by [email or web address] year old female for new patient physical.Sees MANAGER ENDOSCOPY yearly . Dermoid cyst removed 8-9 yrs [...] in the HPI Sara Garcia PA-C [address] [facility] [address], [place], [address], [facility] 10/29/2020 18:16:58 12/03/2020 text/html ROS as noted [...] she is attempting. Sara Garcia PA-C [address] [facility] [address], [place], [address], [facility] 12/03/2020 16:04:36 04/30/2021 text/html ROS as noted in the HPI 46 yr old F is here for elevated BP f/u. NO elevation in office today. No testing of BP on outside.-In November BP 130/80. BMI 38.8. TSH normal. Triglycerides 288. Discussed diet and weight loss options.-Pt states she knows what she has to do it just is difficult to start doing. Jeri juan [facility] 05/06/2021 14:54:58 03/10/2022 text/html Generic HPI TemplateReported by [email or web address] yr old F is here for elevated BP f/u. NO elevation in office today (124/74)-BMI 39.5 today, 4lb wt gain from last April 2021. Triglycerides improved from 288 to 152 (07/2021). Discussed diet and weight loss options.-Pt states she that she has been eating smaller portions and more fruits and vegetable. 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 Dermoid cyst removed 8-9 yrs [...] in the HPI Sara Garcia PA-C [address] [address], [place], [address], [facility] 09/18/2022 16:34:51 OBGyn Episode No OBEpisode recorded.
== END 2025-06-22 16:13 | disposition home or self-care (01) ==
LOC: HO.MAMMO 16:12
PROVIDERS: PCP Physician Assistant; Visit Provider Advanced Practice Midwife
DX: Z12.31 Encounter for screening mammogram for malignant neoplasm of breast (principal)
CPT/HCPCS: 77063; 77067

== ENCOUNTER → 2025-06-22 16:30 | Outpatient (BNV) | payer BC, SELFPAY | PROVIDERS: PCP Physician Assistant; Visit Provider Internal Medicine | DX: Z12.31 Encounter for screening mammogram for malignant neoplasm of breast (principal) | CPT/HCPCS: 77063; 77067 ==